=== PATIENT | female | born 1950 | race Caucasian/White ===

== ENCOUNTER 2018-03-18 11:09 | Inpatient (IN) | payer MEDICARE ==
[~2018-03-18] VITALS: Ht 160 cm; Wt 78.9 kg
[2018-03-18 11:55] LABS: BASOPHILS % 0.7 % (0.0-2.0); EOSINOPHILS % 1.4 % (0.0-5.0); HEMATOCRIT. 38.6 % (36.0-48.0); HEMOGLOBIN. 12.6 g/dL (12.0-16.0); LYMPHOCYTES % 33.9 % (20.0-50.0); MEAN CORPUSCULAR HEMOGLOBIN 27.2 pg (28.0-32.0); MEAN CORPUSCULAR VOLUME 83.5 fL (81.0-99.0); MEAN PLATELET VOLUME 10.6 fl (7.4-10.4); MONOCYTES % 7.8 % (2.0-8.0); NEUTROPHILS % 56.2 % (40.0-76.0); PLATELET 198 x1000/uL (130-400); RED BLOOD CELL COUNT 4.62 mill/uL (4.2-5.4); RED CELL DISTRIBUTION WIDTH 13.8 % (11.6-14.6)
[2018-03-18 12:02] LABS: CHLORIDE 106 mEq/L (98-107); PROTHROMBIN TIME 9.9 sec (9.1-11.1)
[2018-03-18 12:05] LABS: ETHANOL BLOOD < 10 mg/dL
[2018-03-18 12:08] LABS: LDL CHOLESTEROL 89 mg/dL (5-100)
[2018-03-18 12:09] LABS: CREATINE KINASE 176 IU/L (26-192)
[2018-03-18] MEDS ORDERED: ASPIRIN 325MG EC TABLET PO ONE (14:00)
[2018-03-18] MEDS ORDERED: DILTIAZEM HCL 30MG TABLET PO ONE (14:15)
[2018-03-18] MEDS ORDERED: ACETAMINOPHEN 325MG TABLET PO ONE (14:15)
[2018-03-18 14:41] LABS: CLARITY URINE CLEAR (CLEAR); COLOR URINE YELLOW (YELLOW); KETONES URINE NEGATIVE (NEGATIVE); LEUKOCYTE ESTERASE URINE NEGATIVE (NEGATIVE); NITRITE URINE NEGATIVE (NEGATIVE); OCCULT BLOOD URINE NEGATIVE (NEGATIVE); PH URINE 5.5 (4.5-8.0); PROTEIN URINE 1+ (NEGATIVE); SPECIFIC GRAVITY URINE 1.021 (1.005-1.030); UROBILINOGEN URINE 0.2 E.U./dL (0.2-1.0)
[2018-03-18 14:58] LABS: *AMPHETAMINES SCREEN URINE NEGATIVE (NEGATIVE); *BARBITURATES SCREEN URINE NEGATIVE (NEGATIVE); *BENZODIAZEPINES SCREEN URINE NEGATIVE (NEGATIVE); *COCAINE SCREEN URINE NEGATIVE (NEGATIVE); METHADONE URINE SCREEN NEGATIVE (NEGATIVE); OPIATES URINE SCREEN NEGATIVE (NEGATIVE)
[2018-03-18 14:59] LABS: CANNABINOID URINE SCREEN NEGATIVE (NEGATIVE); PHENCYCLIDINE URINE SCREEN NEGATIVE (NEGATIVE)
[2018-03-18] MEDS ORDERED: ACETAMINOPHEN 325MG TABLET PO PRN (16:45)
[2018-03-18] MEDS ORDERED: ACETAMINOPHEN 650MG SUPP PR PRN (16:45)
[2018-03-18] MEDS ORDERED: IPRATROPIUM/ALBUTEROL 0.5-3(2.5)MG/3ML NEB INH PRN (16:45)
[2018-03-18] MEDS ORDERED: HYDROCODONE/ACETAMINOPHEN 5/325MG TABLET PO PRN (16:45)
[2018-03-18] MEDS ORDERED: DIPHENHYDRAMINE 50MG/ML VIAL IV PRN (16:45)
[2018-03-18] MEDS ORDERED: MAGNESIUM/ALUMINUM HYDROXIDE/SIMETHICONE 30ML UDC PO PRN (16:45)
[2018-03-18] MEDS ORDERED: GUAIFENESIN 200MG/10ML SUGAR FREE UDC PO PRN (16:45)
[2018-03-18] MEDS ORDERED: ONDANSETRON HCL 4MG/2ML INJ IV PRN (16:45)
[2018-03-18] MEDS ORDERED: DOCUSATE SODIUM 100MG CAPSULE PO PRN (16:45)
[2018-03-18] MEDS ORDERED: ACETAMINOPHEN 650MG/20.3ML UDC GT PRN (16:45)
[2018-03-18] MEDS ORDERED: DILTIAZEM HCL 5MG/ML 5ML VIAL IV NR (17:00)
[2018-03-18] MEDS: INSULIN LISPRO 100 UNITS/ML SUBCUT NR ×2 (19:58→21:33)
[2018-03-18 21:00] VITALS: BP 142/101
[2018-03-18] MEDS: INSULIN LISPRO 100 UNITS/ML SUBCUT SCH (21:00)
[2018-03-18] MEDS ORDERED: NA PHOS,M-B/NA PHOS,DI-BA ENEMA 118ML PR PRN (21:00)
[2018-03-18] MEDS ORDERED: DEXTROSE 50% WATER 50ML SYRINGE IV PRN (21:00)
[2018-03-18] MEDS ORDERED: ENOXAPARIN 80MG/0.8ML SYR SUBCUT NR (21:01)
[2018-03-18] MEDS: BLOOD SUGAR DIAGNOSTIC STRIP TEST SCH (21:33)
[2018-03-18] MEDS: DIGOXIN 500MCG/2ML AMP IV SCH (21:52)
[2018-03-18] MEDS: SODIUM CHLORIDE 0.9% INJ 3ML FLUSH IVF SCH (22:02)
[2018-03-19] VITALS: BP 143/53
[2018-03-19 00:50] LABS: CREATINE KINASE 159 IU/L (26-192)
[2018-03-19 00:51] LABS: CREATINE KINASE MB FRACTION 1.5 ng/mL (0.5-3.6)
[2018-03-19] MEDS ORDERED: ATOR10TA69 MT (01:06)
[2018-03-19] MEDS ORDERED: HYDR12.529 MT (01:06)
[2018-03-19] MEDS ORDERED: LISI10TA5 MT (01:06)
[2018-03-19 04:00] VITALS: BP 145/67
[2018-03-19] MEDS: SODIUM CHLORIDE 0.9% INJ 3ML FLUSH IVF SCH ×3 (05:43→21:03)
[2018-03-19] MEDS: BLOOD SUGAR DIAGNOSTIC STRIP TEST SCH ×4 (05:43→21:04)
[2018-03-19] MEDS: INSULIN LISPRO 100 UNITS/ML SUBCUT SCH ×4 (05:46→21:21)
[2018-03-19 07:24] LABS: BASOPHILS % 0.3 % (0.0-2.0); EOSINOPHILS % 2.6 % (0.0-5.0); HEMATOCRIT. 37.4 % (36.0-48.0); HEMOGLOBIN. 12.1 g/dL (12.0-16.0); LYMPHOCYTES % 33.3 % (20.0-50.0); MEAN CORPUSCULAR VOLUME 83.2 fL (81.0-99.0); MEAN PLATELET VOLUME 10.6 fl (7.4-10.4); MONOCYTES % 8.2 % (2.0-8.0); NEUTROPHILS % 55.6 % (40.0-76.0); PLATELET 186 x1000/uL (130-400); RED BLOOD CELL COUNT 4.49 mill/uL (4.2-5.4); RED CELL DISTRIBUTION WIDTH 14.1 % (11.6-14.6)
[2018-03-19 08:00] VITALS: BP 140/60
[2018-03-19] MEDS: ASPIRIN 81MG EC TABLET PO SCH (08:11)
[2018-03-19 11:14] LABS: CLARITY URINE CLEAR (CLEAR); COLOR URINE YELLOW (YELLOW); KETONES URINE NEGATIVE (NEGATIVE); LEUKOCYTE ESTERASE URINE NEGATIVE (NEGATIVE); NITRITE URINE NEGATIVE (NEGATIVE); OCCULT BLOOD URINE NEGATIVE (NEGATIVE); PROTEIN URINE TRACE (NEGATIVE); SPECIFIC GRAVITY URINE 1.018 (1.005-1.030); UROBILINOGEN URINE 0.2 E.U./dL (0.2-1.0)
[2018-03-19 11:23] LABS: CHLORIDE 107 mEq/L (98-107)
[2018-03-19 11:35] LABS: CREATINE KINASE 137 IU/L (26-192); CREATINE KINASE MB FRACTION 1.5 ng/mL (0.5-3.6)
[2018-03-19 11:37] LABS: T4 FREE 1.12 ng/dL (0.76-1.46)
[2018-03-19 11:47] LABS: HDL CHOLESTEROL 39 mg/dL (40-59)
[2018-03-19 11:49] LABS: FOLIC ACID (FOLATE) SERUM 19.5 ng/mL (>5.38); LDL CHOLESTEROL 87 mg/dL (5-100)
[2018-03-19 12:00] VITALS: BP_SYST 138; BP_SYST 140; BP_DIAS 60; BP_DIAS 69
[2018-03-19] MEDS: ENOXAPARIN 40MG/0.4ML SYR SUBCUT SCH (12:09)
[2018-03-19] MEDS: CLOPIDOGREL 75MG TABLET PO SCH (12:09)
[2018-03-19 16:00] VITALS: BP_SYST 136; BP_DIAS 67; BP_DIAS 69
[2018-03-19] MEDS: DIGOXIN 500MCG/2ML AMP IV SCH (18:09)
[2018-03-19 20:00] VITALS: BP 180/73
[2018-03-19] MEDS: ATORVASTATIN CALCIUM 10MG TABLET PO SCH (21:03)
[2018-03-20] VITALS: BP 147/75
[2018-03-20 04:00] VITALS: BP 105/66
[2018-03-20] MEDS: SODIUM CHLORIDE 0.9% INJ 3ML FLUSH IVF SCH ×3 (06:16→20:55)
[2018-03-20] MEDS: INSULIN LISPRO 100 UNITS/ML SUBCUT SCH ×4 (06:28→21:17)
[2018-03-20] MEDS: BLOOD SUGAR DIAGNOSTIC STRIP TEST SCH ×4 (06:28→20:55)
[2018-03-20 08:00] VITALS: BP 171/74
[2018-03-20] MEDS: CLOPIDOGREL 75MG TABLET PO SCH (08:02)
[2018-03-20] MEDS: ASPIRIN 81MG EC TABLET PO SCH (08:02)
[2018-03-20] MEDS: ENOXAPARIN 40MG/0.4ML SYR SUBCUT SCH (08:03)
[2018-03-20 12:00] VITALS: BP 147/62
[2018-03-20 16:00] VITALS: BP 168/70
[2018-03-20] MEDS: DIGOXIN 500MCG/2ML AMP IV SCH (16:52)
[2018-03-20 20:00] VITALS: BP 191/76
[2018-03-20] MEDS: ATORVASTATIN CALCIUM 10MG TABLET PO SCH (20:54)
[2018-03-21] VITALS: BP 174/61
[2018-03-21 04:00] VITALS: BP 163/85
[2018-03-21 08:00] VITALS: BP 161/82
[2018-03-21] MEDS: CLOPIDOGREL 75MG TABLET PO SCH (08:59)
[2018-03-21] MEDS: ASPIRIN 81MG EC TABLET PO SCH (08:59)
[2018-03-21] MEDS: ENOXAPARIN 40MG/0.4ML SYR SUBCUT SCH (09:00)
[2018-03-21 12:00] VITALS: BP 135/82
[2018-03-21] MEDS: BLOOD SUGAR DIAGNOSTIC STRIP TEST SCH (12:02)
[2018-03-21] MEDS: INSULIN LISPRO 100 UNITS/ML SUBCUT SCH (12:47)
[2018-03-21] MEDS ORDERED: DIGO125T82 MT (13:01)
[2018-03-21] MEDS ORDERED: ATOR10TA PO (13:01)
[2018-03-21] MEDS ORDERED: ASPI-1158 PO (13:01)
[2018-03-21] MEDS ORDERED: CLOP75TA16 PO (13:01)
[2018-03-21] MEDS: SODIUM CHLORIDE 0.9% INJ 3ML FLUSH IVF SCH (14:00)
[2018-03-21 14:18] VITALS: BP 135/82
[2018-03-21 16:00] VITALS: BP 167/66
[2018-03-21 16:13] LABS: BASOPHILS % 0.5 % (0.0-2.0); EOSINOPHILS % 1.2 % (0.0-5.0); HEMATOCRIT. 38.6 % (36.0-48.0); HEMOGLOBIN. 12.6 g/dL (12.0-16.0); LYMPHOCYTES % 28.3 % (20.0-50.0); MEAN CORPUSCULAR HEMOGLOBIN 27.1 pg (28.0-32.0); MEAN CORPUSCULAR VOLUME 83.1 fL (81.0-99.0); MEAN PLATELET VOLUME 10.9 fl (7.4-10.4); MONOCYTES % 8.8 % (2.0-8.0); NEUTROPHILS % 61.2 % (40.0-76.0); PLATELET 210 x1000/uL (130-400); RED BLOOD CELL COUNT 4.64 mill/uL (4.2-5.4); RED CELL DISTRIBUTION WIDTH 13.8 % (11.6-14.6)
[2018-03-21 16:18] LABS: CHLORIDE 101 mEq/L (98-107)
== END 2018-03-21 17:05 | disposition home health service (06) | DRG 65 ==
LOC: ER 11:09 → 8WST 14:00 → ENRESERV 19:13 → 8WST 03-19 00:04
PROVIDERS: ADMIT Family Medicine; ATTEND Family Medicine
DX: I63.9 Cerebral infarction, unspecified (principal); G81.91 Hemiplegia, unspecified affecting right dominant side; I10 Essential (primary) hypertension; E11.9 Type 2 diabetes mellitus without complications; R90.82 White matter disease, unspecified; G31.9 Degenerative disease of nervous system, unspecified; R47.1 Dysarthria and anarthria; R29.810 Facial weakness; Z86.73 Personal history of transient ischemic attack (TIA), and cerebral infarction without residual deficits; Z88.0 Allergy status to penicillin; Z88.8 Allergy status to other drugs, medicaments and biological substances
CPT/HCPCS: 36415; 70544; 70553; 71045; 80061; 80305; 82550; 82553; 82607; 82746; 82962; 83036; 83721; 83880; 84439; 84443; 84481; 84484; 85379; 92523; 92610; 93005; 93306; 93880; 93970; 96372; 96374; 97112; 97116; 97162; 97166; 99291; C1893; G0482; J1160; J1650; J1815; J3490

== ENCOUNTER 2018-08-21 18:25 | Inpatient (IN) | payer MEDICARE ==
[~2018-08-21] VITALS: Ht 175.3 cm; Wt 84.6 kg
[~2018-08-21 18:25] MED LIST: ASPI-1158 PO; ATOR10TA PO; ATOR10TA69 MT; CLOP75TA16 PO; DIGO125T82 MT; HYDR12.529 MT; LISI10TA5 MT
[2018-08-21] MEDS ORDERED: SODIUM CHLORIDE 0.9% 1,000 ML IV ONE ×2 (19:26→21:00)
[2018-08-21 19:50] LABS: BASOPHILS % 0.9 % (0.0-2.0); EOSINOPHILS % 0.5 % (0.0-5.0); HEMATOCRIT. 40.9 % (36.0-48.0); HEMOGLOBIN. 13.5 g/dL (12.0-16.0); LYMPHOCYTES % 29.3 % (20.0-50.0); MEAN CORPUSCULAR HEMOGLOBIN 27.3 pg (28.0-32.0); MEAN CORPUSCULAR VOLUME 83.1 fL (81.0-99.0); MEAN PLATELET VOLUME 10.5 fl (7.4-10.4); MONOCYTES % 8.1 % (2.0-8.0); NEUTROPHILS % 61.2 % (40.0-76.0); PLATELET 204 x1000/uL (130-400); RED BLOOD CELL COUNT 4.92 mill/uL (4.2-5.4); RED CELL DISTRIBUTION WIDTH 14.7 % (11.6-14.6)
[2018-08-21 19:52] LABS: CHLORIDE 108 mEq/L (98-107)
[2018-08-21] MEDS ORDERED: IOHEXOL-350 100 ML BOTTLE ONE (21:39)
[2018-08-21] MEDS ORDERED: ASPIRIN 325MG TABLET PO ONE (23:15)
[2018-08-21] MEDS ORDERED: FUROSEMIDE 40MG/4ML VIAL IVP ONE (23:15)
[2018-08-22] VITALS (31 sets, daily range): BP systolic 51–184; BP diastolic 22–99
[2018-08-22] MEDS: METOPROLOL TARTRATE 5MG/5ML VIAL IV SCH ×3 (00:16→01:56)
[2018-08-22 00:30] LABS: CLARITY URINE CLEAR (CLEAR); COLOR URINE YELLOW (YELLOW); KETONES URINE NEGATIVE (NEGATIVE); LEUKOCYTE ESTERASE URINE NEGATIVE (NEGATIVE); NITRITE URINE NEGATIVE (NEGATIVE); OCCULT BLOOD URINE NEGATIVE (NEGATIVE); PROTEIN URINE TRACE (NEGATIVE); SPECIFIC GRAVITY URINE 1.024 (1.005-1.030); UROBILINOGEN URINE 0.2 E.U./dL (0.2-1.0)
[2018-08-22] MEDS ORDERED: ENOXAPARIN 80MG/0.8ML SYR SUBCUT ONE (00:30)
[2018-08-22 00:57] LABS: PHENCYCLIDINE URINE SCREEN NEGATIVE (NEGATIVE)
[2018-08-22 00:58] LABS: *AMPHETAMINES SCREEN URINE NEGATIVE (NEGATIVE); *BARBITURATES SCREEN URINE NEGATIVE (NEGATIVE); *BENZODIAZEPINES SCREEN URINE NEGATIVE (NEGATIVE); *COCAINE SCREEN URINE NEGATIVE (NEGATIVE); CANNABINOID URINE SCREEN NEGATIVE (NEGATIVE); METHADONE URINE SCREEN NEGATIVE (NEGATIVE)
[2018-08-22 00:59] LABS: OPIATES URINE SCREEN NEGATIVE (NEGATIVE)
[2018-08-22] MEDS ORDERED: LISI40TA4 PO (04:29)
[2018-08-22] MEDS ORDERED: METOPROLOL TARTRATE 5MG/5ML VIAL IV NR (05:15)
[2018-08-22] MEDS ORDERED: GUAIFENESIN 200MG/10ML SUGAR FREE UDC PO PRN (06:30)
[2018-08-22] MEDS ORDERED: IPRATROPIUM/ALBUTEROL 0.5-3(2.5)MG/3ML NEB INH PRN (06:30)
[2018-08-22] MEDS ORDERED: ONDANSETRON HCL 4MG/2ML INJ IV PRN (06:30)
[2018-08-22] MEDS ORDERED: NA PHOS,M-B/NA PHOS,DI-BA ENEMA 118ML PR PRN (06:30)
[2018-08-22] MEDS ORDERED: DEXTROSE 50% WATER 50ML SYRINGE IV PRN (06:30)
[2018-08-22] MEDS ORDERED: HYDROCODONE/ACETAMINOPHEN 10/325MG TABLET PO PRN (06:30)
[2018-08-22] MEDS ORDERED: MAGNESIUM/ALUMINUM HYDROXIDE/SIMETHICONE 30ML UDC PO PRN (06:30)
[2018-08-22] MEDS ORDERED: DOCUSATE SODIUM 100MG CAPSULE PO PRN (06:30)
[2018-08-22] MEDS: BLOOD SUGAR DIAGNOSTIC STRIP TEST SCH ×3 (06:50→17:57)
[2018-08-22] MEDS: INSULIN LISPRO 100 UNITS/ML SUBCUT SCH ×3 (07:20→18:07)
[2018-08-22] MEDS: ENOXAPARIN 80MG/0.8ML SYR SUBCUT SCH ×2 (09:30→21:49)
[2018-08-22] MEDS: ASPIRIN 81MG EC TABLET PO SCH (09:30)
[2018-08-22] MEDS ORDERED: DILTIAZEM HCL 125 MG in DEXT 5% WATER 100 ML IV SCH (10:00)
[2018-08-22] MEDS ORDERED: POTASSIUM CHLORIDE INJ 40 MEQ in DEXT 5% WATER 250 ML IV SCH (10:00)
[2018-08-22 10:44] LABS: CHLORIDE 107 mEq/L (98-107); HEMATOCRIT. 40.8 % (36.0-48.0); HEMOGLOBIN. 12.7 g/dL (12.0-16.0); MEAN CORPUSCULAR HEMOGLOBIN 26.3 pg (28.0-32.0); MEAN CORPUSCULAR VOLUME 84.5 fL (81.0-99.0); RED BLOOD CELL COUNT 4.83 mill/uL (4.2-5.4); RED CELL DISTRIBUTION WIDTH 15.2 % (11.6-14.6)
[2018-08-22 11:27] LABS: PLATELET 178 x1000/uL (130-400)
[2018-08-22 11:30] LABS: PLATELET ESTIMATE NORMAL
[2018-08-22 13:05] LABS: BG BASE EXCESS -2.8 mmol/L (-2.0-2.0); BG CARBOXYHEMOGLOBIN 0.9 % (0.5-1.5); BG DEOXYHEMOGLOBIN 7.9 % (0.0-5.0); BG FRACTION INSPIRED OXYGEN 30; BG HCO3 ACT 21.2 mmol/L (22.0-26.0); BG METHEMOGLOBIN 0.2 % (0.0-1.5); BG PCO2 34.7 mmHg (35.0-45.0); BG PH 7.403 (7.350-7.450); BG PO2 66.3 mmHg (75.0-100.0); BG SAMPLE SITE RIGHT BRACHIAL; BG TOTAL HEMOGLOBIN 14.4 g/dL (12.0-18.0); BG VENT MODE NASAL CANNULA
[2018-08-22 13:20] LABS: HEPATITIS B SURFACE ANTIGEN NEGATIVE
[2018-08-22 13:50] LABS: HEPATITIS A AB IGM NEGATIVE (NEGATIVE)
[2018-08-22] MEDS: SODIUM CHLORIDE 0.9% INJ 3ML FLUSH IVF SCH ×2 (14:17→22:04)
[2018-08-22] MEDS: LORAZEPAM 2MG/ML CPJ IV PRN (14:42)
[2018-08-22] MEDS: CLONIDINE 0.1MG TABLET PO PRN (14:45)
[2018-08-22] MEDS: HYDRALAZINE 20MG/ML VIAL IV PRN (15:19)
[2018-08-22] MEDS: IPRATROPIUM BROMIDE (0.02%) 0.5MG/2.5ML NEB HHN SCH (15:45)
[2018-08-22] MEDS ORDERED: FUROSEMIDE 40MG/4ML VIAL IVP SCH (16:00)
[2018-08-22 16:07] LABS: BG BASE EXCESS -7.9 mmol/L (-2.0-2.0); BG CARBOXYHEMOGLOBIN 0.9 % (0.5-1.5); BG DEOXYHEMOGLOBIN 13.8 % (0.0-5.0); BG HCO3 ACT 23.4 mmol/L (22.0-26.0); BG METHEMOGLOBIN 0.2 % (0.0-1.5); BG OXYHEMOGLOBIN 85.1 % (94.0-97.0); BG PCO2 75.6 mmHg (35.0-45.0); BG PH 7.108 (7.350-7.450); BG PO2 72.1 mmHg (75.0-100.0); BG SAMPLE SITE RIGHT BRACHIAL; BG TOTAL HEMOGLOBIN 15.2 g/dL (12.0-18.0)
[2018-08-22] MEDS ORDERED: NITROGLYCERIN 50MG PREMIX 250 ML IV PRN (16:15)
[2018-08-22] MEDS ORDERED: FUROSEMIDE 40MG/4ML VIAL IVP NR (16:45)
[2018-08-22 17:20] LABS: BG BASE EXCESS -1.9 mmol/L (-2.0-2.0); BG CARBOXYHEMOGLOBIN 1.3 % (0.5-1.5); BG DEOXYHEMOGLOBIN 0.2 % (0.0-5.0); BG FRACTION INSPIRED OXYGEN 100; BG HCO3 ACT 21.5 mmol/L (22.0-26.0); BG METHEMOGLOBIN 0.3 % (0.0-1.5); BG OXYGEN SATURATION 99.8 % (92.0-98.5); BG OXYHEMOGLOBIN 98.2 % (94.0-97.0); BG PCO2 32.8 mmHg (35.0-45.0); BG PH 7.434 (7.350-7.450); BG PO2 279.8 mmHg (75.0-100.0); BG SAMPLE SITE RIGHT BRACHIAL; BG TIDAL VOLUME(mL) 550 mL; BG TOTAL HEMOGLOBIN 14.6 g/dL (12.0-18.0); BG VENT MODE VENT - A/C; BG VENT RATE 18 set
[2018-08-22] MEDS: HYDRALAZINE HCL 25MG TABLET PO SCH ×2 (18:07→21:50)
[2018-08-22] MEDS: PROPOFOL 10MG/ML 100ML 100 ML IV PRN (19:39)
[2018-08-22] MEDS: METOPROLOL TARTRATE 25MG TABLET PO SCH (20:51)
[2018-08-22] MEDS ORDERED: ENOXAPARIN 40MG/0.4ML SYR SUBCUT SCH (21:00)
[2018-08-23] VITALS (85 sets, daily range): BP systolic 76–138; BP diastolic 48–95
[2018-08-23] MEDS: BLOOD SUGAR DIAGNOSTIC STRIP TEST SCH ×4 (00:02→18:03)
[2018-08-23] MEDS: INSULIN LISPRO 100 UNITS/ML SUBCUT SCH ×4 (00:06→18:00)
[2018-08-23] MEDS: IPRATROPIUM BROMIDE (0.02%) 0.5MG/2.5ML NEB HHN SCH ×6 (00:30→23:54)
[2018-08-23] MEDS: HYDRALAZINE HCL 25MG TABLET PO SCH ×3 (06:00→21:29)
[2018-08-23] MEDS: SODIUM CHLORIDE 0.9% INJ 3ML FLUSH IVF SCH ×3 (06:00→21:29)
[2018-08-23 06:07] LABS: INR 1.2; PROTHROMBIN TIME 12.7 sec (9.6-11.0)
[2018-08-23 06:25] LABS: T4 FREE 1.31 ng/dL (0.76-1.46)
[2018-08-23] MEDS: PROPOFOL 10MG/ML 100ML 100 ML IV PRN ×2 (06:42→21:40)
[2018-08-23 06:56] LABS: CREATINE KINASE MB FRACTION 2.8 ng/mL (0.5-3.6)
[2018-08-23] MEDS: OMEPRAZOLE 20MG CAPSULE EXTENDED RELEASE PO SCH (07:55)
[2018-08-23] MEDS: ENOXAPARIN 80MG/0.8ML SYR SUBCUT SCH ×2 (08:14→21:29)
[2018-08-23] MEDS: ASPIRIN 81MG EC TABLET PO SCH (08:14)
[2018-08-23 08:25] LABS: BG BASE EXCESS 2.2 mmol/L (-2.0-2.0); BG CARBOXYHEMOGLOBIN 0.4 % (0.5-1.5); BG DEOXYHEMOGLOBIN 3.2 % (0.0-5.0); BG FRACTION INSPIRED OXYGEN 40; BG HCO3 ACT 23.1 mmol/L (22.0-26.0); BG METHEMOGLOBIN 0.2 % (0.0-1.5); BG OXYGEN SATURATION 96.8 % (92.0-98.5); BG OXYHEMOGLOBIN 96.2 % (94.0-97.0); BG PCO2 26.2 mmHg (35.0-45.0); BG PH 7.564 (7.350-7.450); BG PO2 81.9 mmHg (75.0-100.0); BG SAMPLE SITE RIGHT RADIAL; BG TIDAL VOLUME(mL) 550 mL; BG TOTAL HEMOGLOBIN 13.1 g/dL (12.0-18.0); BG VENT MODE VENT - A/C; BG VENT RATE 16 set
[2018-08-23] MEDS: METOPROLOL TARTRATE 25MG TABLET PO SCH (08:54)
[2018-08-23] MEDS: FUROSEMIDE 40MG/4ML VIAL IVP SCH ×2 (10:09→18:00)
[2018-08-23] MEDS: ESMOLOL 2500MG PREMIX 250 ML IV PRN ×3 (10:30→19:10)
[2018-08-23] MEDS ORDERED: PROPOFOL 10MG/ML 100ML 100 ML IV PRN (11:15)
[2018-08-23] MEDS ORDERED: LIDOCAINE HCL 1% 20ML VIAL (Pyxis) INJ ONE (13:02)
[2018-08-23] MEDS ORDERED: NOREPINEPHRINE 8 MG in DEXT 5% WATER 242 ML IV PRN (20:32)
[2018-08-23 21:24] LABS: BASOPHILS % 0.6 % (0.0-2.0); EOSINOPHILS % 0.2 % (0.0-5.0); HEMATOCRIT. 38.2 % (36.0-48.0); HEMOGLOBIN. 12.4 g/dL (12.0-16.0); LYMPHOCYTES % 16.4 % (20.0-50.0); MEAN CORPUSCULAR HEMOGLOBIN 27.2 pg (28.0-32.0); MEAN CORPUSCULAR VOLUME 83.5 fL (81.0-99.0); MEAN PLATELET VOLUME 10.7 fl (7.4-10.4); MONOCYTES % 13.3 % (2.0-8.0); NEUTROPHILS % 69.5 % (40.0-76.0); PLATELET 179 x1000/uL (130-400); RED BLOOD CELL COUNT 4.57 mill/uL (4.2-5.4)
[2018-08-23 22:02] LABS: BG BASE EXCESS -0.3 mmol/L (-2.0-2.0); BG CARBOXYHEMOGLOBIN 0.9 % (0.5-1.5); BG FRACTION INSPIRED OXYGEN 40; BG HCO3 ACT 22.5 mmol/L (22.0-26.0); BG METHEMOGLOBIN 0.1 % (0.0-1.5); BG PCO2 31.5 mmHg (35.0-45.0); BG PH 7.472 (7.350-7.450); BG PIP 39 cmH2O; BG PO2 83.4 mmHg (75.0-100.0); BG SAMPLE SITE RIGHT RADIAL; BG TIDAL VOLUME(mL) 500 mL; BG TOTAL HEMOGLOBIN 12.9 g/dL (12.0-18.0); BG VENT MODE VENT - A/C; BG VENT RATE 14 set
[2018-08-23] MEDS: CLONIDINE 0.1MG TABLET PO PRN (22:59)
[2018-08-23] MEDS ORDERED: IBUTILIDE FUMARATE 1 MG in SODIUM CHLORIDE 0.9% 50 ML IV SCH (23:00)
[2018-08-24] VITALS (96 sets, daily range): BP systolic 85–119; BP diastolic 49–75
[2018-08-24] MEDS: IPRATROPIUM BROMIDE (0.02%) 0.5MG/2.5ML NEB HHN SCH ×5 (04:02→20:26)
[2018-08-24 05:41] LABS: BASOPHILS % 0.5 % (0.0-2.0); EOSINOPHILS % 0.3 % (0.0-5.0); HEMATOCRIT. 36.8 % (36.0-48.0); HEMOGLOBIN. 11.9 g/dL (12.0-16.0); LYMPHOCYTES % 21.1 % (20.0-50.0); MEAN CORPUSCULAR HEMOGLOBIN 26.8 pg (28.0-32.0); MEAN CORPUSCULAR VOLUME 83.2 fL (81.0-99.0); MEAN PLATELET VOLUME 11.4 fl (7.4-10.4); NEUTROPHILS % 69.1 % (40.0-76.0); PLATELET 174 x1000/uL (130-400); RED BLOOD CELL COUNT 4.43 mill/uL (4.2-5.4); RED CELL DISTRIBUTION WIDTH 15.2 % (11.6-14.6)
[2018-08-24] MEDS: INSULIN LISPRO 100 UNITS/ML SUBCUT SCH ×5 (06:00→23:49)
[2018-08-24] MEDS: HYDRALAZINE HCL 25MG TABLET PO SCH ×3 (06:00→22:00)
[2018-08-24] MEDS: BLOOD SUGAR DIAGNOSTIC STRIP TEST SCH ×5 (06:06→23:39)
[2018-08-24] MEDS: SODIUM CHLORIDE 0.9% INJ 3ML FLUSH IVF SCH ×3 (06:06→22:05)
[2018-08-24] MEDS: SOTALOL HCL 80MG TABLET NG NR ×2 (06:09→06:14)
[2018-08-24] MEDS: OMEPRAZOLE 20MG CAPSULE EXTENDED RELEASE PO SCH (06:46)
[2018-08-24] MEDS: FUROSEMIDE 40MG/4ML VIAL IVP SCH (06:46)
[2018-08-24] MEDS: ASPIRIN 81MG EC TABLET PO SCH (08:31)
[2018-08-24] MEDS: ENOXAPARIN 80MG/0.8ML SYR SUBCUT SCH ×2 (08:32→21:07)
[2018-08-24] MEDS: SOTALOL HCL 80MG TABLET PO SCH ×3 (08:35→22:05)
[2018-08-24] MEDS: ESMOLOL 2500MG PREMIX 250 ML IV PRN ×2 (08:36→15:23)
[2018-08-24] MEDS: PROPOFOL 10MG/ML 100ML 100 ML IV PRN (08:44)
[2018-08-24 08:57] LABS: BG BASE EXCESS -0.4 mmol/L (-2.0-2.0); BG CARBOXYHEMOGLOBIN 0.5 % (0.5-1.5); BG DEOXYHEMOGLOBIN 3.1 % (0.0-5.0); BG FRACTION INSPIRED OXYGEN 40; BG HCO3 ACT 23.5 mmol/L (22.0-26.0); BG METHEMOGLOBIN 0.2 % (0.0-1.5); BG OXYGEN SATURATION 96.9 % (92.0-98.5); BG OXYHEMOGLOBIN 96.2 % (94.0-97.0); BG PCO2 36.1 mmHg (35.0-45.0); BG PH 7.432 (7.350-7.450); BG SAMPLE SITE RIGHT RADIAL; BG TIDAL VOLUME(mL) 500 mL; BG TOTAL HEMOGLOBIN 12.5 g/dL (12.0-18.0); BG VENT MODE VENT - A/C; BG VENT RATE 14 set
[2018-08-24] MEDS ORDERED: SODIUM CHLORIDE 0.9% 500 ML IV ONE (11:30)
[2018-08-24] MEDS ORDERED: PROPOFOL 10MG/ML 100ML 100 ML IV PRN (11:30)
[2018-08-25] VITALS (93 sets, daily range): BP systolic 97–158; BP diastolic 28–80
[2018-08-25] MEDS: IPRATROPIUM BROMIDE (0.02%) 0.5MG/2.5ML NEB HHN SCH ×6 (00:30→20:17)
[2018-08-25] MEDS: ACETAMINOPHEN 325MG TABLET PO PRN (04:19)
[2018-08-25] MEDS: SODIUM CHLORIDE 0.9% INJ 3ML FLUSH IVF SCH ×3 (05:39→21:27)
[2018-08-25] MEDS: BLOOD SUGAR DIAGNOSTIC STRIP TEST SCH ×4 (05:50→23:58)
[2018-08-25] MEDS: INSULIN LISPRO 100 UNITS/ML SUBCUT SCH ×3 (05:55→17:38)
[2018-08-25] MEDS: HYDRALAZINE HCL 25MG TABLET PO SCH ×3 (06:05→21:27)
[2018-08-25 07:42] LABS: BG BASE EXCESS -1.4 mmol/L (-2.0-2.0); BG CARBOXYHEMOGLOBIN 0.9 % (0.5-1.5); BG DEOXYHEMOGLOBIN 3.5 % (0.0-5.0); BG HCO3 ACT 22.5 mmol/L (22.0-26.0); BG METHEMOGLOBIN 0.2 % (0.0-1.5); BG OXYGEN SATURATION 96.5 % (92.0-98.5); BG OXYHEMOGLOBIN 95.4 % (94.0-97.0); BG PCO2 35.3 mmHg (35.0-45.0); BG PH 7.423 (7.350-7.450); BG PO2 88.2 mmHg (75.0-100.0); BG SAMPLE SITE RIGHT RADIAL; BG TIDAL VOLUME(mL) 500 mL; BG TOTAL HEMOGLOBIN 12.1 g/dL (12.0-18.0); BG VENT MODE VENT - A/C; BG VENT RATE 14 set
[2018-08-25] MEDS: SOTALOL HCL 80MG TABLET PO SCH (08:31)
[2018-08-25] MEDS: ENOXAPARIN 80MG/0.8ML SYR SUBCUT SCH (08:31)
[2018-08-25] MEDS: ASPIRIN 81MG EC TABLET PO SCH (08:31)
[2018-08-25] MEDS: FAMOTIDINE 20MG TABLET PO SCH (08:31)
[2018-08-25 09:13] LABS: BASOPHILS % 0.6 % (0.0-2.0); EOSINOPHILS % 0.4 % (0.0-5.0); HEMATOCRIT. 36.7 % (36.0-48.0); HEMOGLOBIN. 11.6 g/dL (12.0-16.0); LYMPHOCYTES % 13.3 % (20.0-50.0); MEAN CORPUSCULAR HEMOGLOBIN 26.6 pg (28.0-32.0); MEAN CORPUSCULAR VOLUME 84.3 fL (81.0-99.0); MEAN PLATELET VOLUME 12.2 fl (7.4-10.4); MONOCYTES % 9.7 % (2.0-8.0); PLATELET 177 x1000/uL (130-400); RED BLOOD CELL COUNT 4.35 mill/uL (4.2-5.4); RED CELL DISTRIBUTION WIDTH 15.2 % (11.6-14.6)
[2018-08-25] MEDS: HYDROMORPHONE HCL/PF 2MG/ML CPJ IV PRN (09:20)
[2018-08-25] MEDS: SODIUM CHLORIDE 0.9% 1,000 ML IV SCH (11:48)
[2018-08-25 22:35] LABS: CLARITY URINE TURBID (CLEAR); COLOR URINE ORANGE (YELLOW); KETONES URINE NEGATIVE (NEGATIVE); LEUKOCYTE ESTERASE URINE 1+ (NEGATIVE); NITRITE URINE NEGATIVE (NEGATIVE); OCCULT BLOOD URINE 3+ (NEGATIVE); PROTEIN URINE 2+ (NEGATIVE); SPECIFIC GRAVITY URINE 1.019 (1.005-1.030)
[2018-08-26] VITALS (61 sets, daily range): BP systolic 100–177; BP diastolic 49–89
[2018-08-26] MEDS: INSULIN LISPRO 100 UNITS/ML SUBCUT SCH ×4 (00:10→17:43)
[2018-08-26] MEDS: SODIUM CHLORIDE 0.9% 1,000 ML IV SCH (00:10)
[2018-08-26] MEDS: IPRATROPIUM BROMIDE (0.02%) 0.5MG/2.5ML NEB HHN SCH ×6 (00:15→20:09)
[2018-08-26] MEDS: LORAZEPAM 2MG/ML CPJ IV PRN ×2 (01:26→08:38)
[2018-08-26] MEDS: HYDRALAZINE 20MG/ML VIAL IV PRN ×2 (02:02→09:06)
[2018-08-26] MEDS: ACETAMINOPHEN 325MG TABLET PO PRN ×2 (04:13→13:14)
[2018-08-26] MEDS: CLONIDINE 0.1MG TABLET PO PRN (04:25)
[2018-08-26] MEDS: POTASSIUM CHLORIDE INJ 10 MEQ in SODIUM CHLORIDE 0.45% 1,000 ML IV SCH (04:37)
[2018-08-26 05:09] LABS: EOSINOPHILS % 0.4 % (0.0-5.0); HEMATOCRIT. 37.1 % (36.0-48.0); HEMOGLOBIN. 11.8 g/dL (12.0-16.0); LYMPHOCYTES % 9.9 % (20.0-50.0); MEAN CORPUSCULAR VOLUME 84.8 fL (81.0-99.0); MEAN PLATELET VOLUME 11.9 fl (7.4-10.4); MONOCYTES % 10.6 % (2.0-8.0); NEUTROPHILS % 79.1 % (40.0-76.0); PLATELET 165 x1000/uL (130-400); RED BLOOD CELL COUNT 4.37 mill/uL (4.2-5.4); RED CELL DISTRIBUTION WIDTH 15.2 % (11.6-14.6)
[2018-08-26] MEDS: BLOOD SUGAR DIAGNOSTIC STRIP TEST SCH ×3 (05:45→18:09)
[2018-08-26] MEDS: HYDRALAZINE HCL 25MG TABLET PO SCH ×3 (06:06→22:05)
[2018-08-26] MEDS: SODIUM CHLORIDE 0.9% INJ 3ML FLUSH IVF SCH ×3 (06:07→22:05)
[2018-08-26] MEDS: FAMOTIDINE 20MG TABLET PO SCH (08:37)
[2018-08-26] MEDS: ASPIRIN 81MG EC TABLET PO SCH (08:37)
[2018-08-26] MEDS: SOTALOL HCL 80MG TABLET PO SCH (08:38)
[2018-08-26] MEDS ORDERED: ENOXAPARIN 80MG/0.8ML SYR SUBCUT SCH (09:00)
[2018-08-26] MEDS: HYDROMORPHONE HCL/PF 2MG/ML CPJ IV PRN ×2 (09:34→20:42)
[2018-08-26 09:45] LABS: BG BASE EXCESS 0.7 mmol/L (-2.0-2.0); BG CARBOXYHEMOGLOBIN 1.5 % (0.5-1.5); BG FRACTION INSPIRED OXYGEN 40; BG HCO3 ACT 25.6 mmol/L (22.0-26.0); BG METHEMOGLOBIN 0.3 % (0.0-1.5); BG OXYGEN SATURATION 96.9 % (92.0-98.5); BG OXYHEMOGLOBIN 95.2 % (94.0-97.0); BG PH 7.403 (7.350-7.450); BG PO2 91.9 mmHg (75.0-100.0); BG PRESSURE SUPPORT 12; BG SAMPLE SITE RIGHT RADIAL; BG TIDAL VOLUME(mL) 500 mL; BG TOTAL HEMOGLOBIN 11.1 g/dL (12.0-18.0); BG VENT MODE VENT - SIMV; BG VENT RATE 8 set
[2018-08-26] MEDS ORDERED: LORAZEPAM 2MG/ML CPJ IV PRN (10:00)
[2018-08-26] MEDS ORDERED: LEVOFLOXACIN 500MG PREMIX 100 ML IV SCH (10:00)
[2018-08-26] MEDS: ENOXAPARIN 80MG/0.8ML SYR SUBCUT SCH (20:42)
[2018-08-26] MEDS: DIPHENHYDRAMINE 50MG/ML VIAL IV PRN (22:31)
[2018-08-27] VITALS (62 sets, daily range): BP systolic 132–208; BP diastolic 60–101
[2018-08-27] MEDS: IPRATROPIUM BROMIDE (0.02%) 0.5MG/2.5ML NEB HHN SCH ×6 (00:02→20:46)
[2018-08-27] MEDS: BLOOD SUGAR DIAGNOSTIC STRIP TEST SCH ×4 (00:14→18:51)
[2018-08-27] MEDS: INSULIN LISPRO 100 UNITS/ML SUBCUT SCH ×4 (00:27→18:56)
[2018-08-27] MEDS: HYDRALAZINE 20MG/ML VIAL IV PRN ×3 (02:41→21:50)
[2018-08-27] MEDS: POTASSIUM CHLORIDE INJ 10 MEQ in SODIUM CHLORIDE 0.45% 1,000 ML IV SCH (02:41)
[2018-08-27 05:41] LABS: BASOPHILS % 0.2 % (0.0-2.0); EOSINOPHILS % 0.2 % (0.0-5.0); HEMATOCRIT. 36.3 % (36.0-48.0); HEMOGLOBIN. 11.2 g/dL (12.0-16.0); MEAN CORPUSCULAR HEMOGLOBIN 26.5 pg (28.0-32.0); MEAN CORPUSCULAR VOLUME 85.6 fL (81.0-99.0); MEAN PLATELET VOLUME 11.1 fl (7.4-10.4); MONOCYTES % 10.6 % (2.0-8.0); PLATELET 174 x1000/uL (130-400); RED BLOOD CELL COUNT 4.24 mill/uL (4.2-5.4); RED CELL DISTRIBUTION WIDTH 15.6 % (11.6-14.6)
[2018-08-27] MEDS: SODIUM CHLORIDE 0.9% INJ 3ML FLUSH IVF SCH ×3 (06:04→21:14)
[2018-08-27] MEDS: HYDRALAZINE HCL 25MG TABLET PO SCH (06:08)
[2018-08-27] MEDS: HYDROMORPHONE HCL/PF 2MG/ML CPJ IV PRN ×2 (06:20→19:38)
[2018-08-27] MEDS: ENOXAPARIN 80MG/0.8ML SYR SUBCUT SCH ×2 (08:29→21:14)
[2018-08-27] MEDS: FAMOTIDINE 20MG TABLET PO SCH (08:30)
[2018-08-27] MEDS: ASPIRIN 81MG EC TABLET PO SCH (08:30)
[2018-08-27] MEDS: SOTALOL HCL 80MG TABLET PO SCH (08:30)
[2018-08-27] MEDS: ACETAMINOPHEN 325MG TABLET PO PRN ×2 (08:30→15:31)
[2018-08-27] MEDS ORDERED: FUROSEMIDE 20MG TABLET PO SCH (09:00)
[2018-08-27 09:36] LABS: BG CARBOXYHEMOGLOBIN 0.6 % (0.5-1.5); BG DEOXYHEMOGLOBIN 4.3 % (0.0-5.0); BG FRACTION INSPIRED OXYGEN 40; BG HCO3 ACT 24.6 mmol/L (22.0-26.0); BG METHEMOGLOBIN 0.3 % (0.0-1.5); BG OXYGEN SATURATION 95.7 % (92.0-98.5); BG OXYHEMOGLOBIN 94.8 % (94.0-97.0); BG PCO2 44.3 mmHg (35.0-45.0); BG PH 7.362 (7.350-7.450); BG PO2 79.5 mmHg (75.0-100.0); BG PRESSURE SUPPORT 12; BG SAMPLE SITE RIGHT BRACHIAL; BG TIDAL VOLUME(mL) 500 mL; BG TOTAL HEMOGLOBIN 11.4 g/dL (12.0-18.0); BG VENT MODE VENT - SIMV; BG VENT RATE 8 set
[2018-08-27] MEDS ORDERED: LEVOFLOXACIN 250MG PREMIX 50 ML IV SCH (10:00)
[2018-08-27] MEDS: HYDRALAZINE HCL 100MG TABLET PO SCH ×2 (14:01→21:14)
[2018-08-27] MEDS: CLONIDINE 0.1MG TABLET PO PRN (19:39)
[2018-08-27] MEDS: DIPHENHYDRAMINE 50MG/ML VIAL IV PRN (21:15)
[2018-08-27] MEDS: NITROGLYCERIN 50MG PREMIX 250 ML IV PRN (22:42)
[2018-08-28] VITALS (91 sets, daily range): BP systolic 99–211; BP diastolic 46–116
[2018-08-28] MEDS: BLOOD SUGAR DIAGNOSTIC STRIP TEST SCH ×5 (00:14→23:23)
[2018-08-28] MEDS: INSULIN LISPRO 100 UNITS/ML SUBCUT SCH ×5 (00:15→23:27)
[2018-08-28] MEDS ORDERED: DEXTROSE 50% WATER 50ML SYRINGE IV PRN (00:30)
[2018-08-28] MEDS ORDERED: FUROSEMIDE 20MG TABLET NG SCH (00:30)
[2018-08-28] MEDS: IPRATROPIUM BROMIDE (0.02%) 0.5MG/2.5ML NEB HHN SCH ×6 (00:35→20:22)
[2018-08-28] MEDS: SODIUM CHLORIDE 0.45% 1,000 ML IV SCH ×2 (00:48→20:27)
[2018-08-28] MEDS: CLONIDINE 0.1MG TABLET PO PRN (01:41)
[2018-08-28] MEDS: HYDROMORPHONE HCL/PF 2MG/ML CPJ IV PRN ×2 (03:24→08:51)
[2018-08-28] MEDS: NITROGLYCERIN 50MG PREMIX 250 ML IV PRN (04:01)
[2018-08-28 05:55] LABS: HEMATOCRIT. 31.6 % (36.0-48.0); MEAN CORPUSCULAR VOLUME 85.1 fL (81.0-99.0); MEAN PLATELET VOLUME 11.8 fl (7.4-10.4); PLATELET 183 x1000/uL (130-400); RED BLOOD CELL COUNT 3.71 mill/uL (4.2-5.4); RED CELL DISTRIBUTION WIDTH 15.5 % (11.6-14.6)
[2018-08-28] MEDS: SODIUM CHLORIDE 0.9% INJ 3ML FLUSH IVF SCH ×3 (06:03→21:52)
[2018-08-28] MEDS: HYDRALAZINE HCL 100MG TABLET PO SCH ×3 (06:07→21:39)
[2018-08-28] MEDS: CLONIDINE 0.2MG TABLET PO SCH ×3 (06:08→21:39)
[2018-08-28 08:46] LABS: BG BASE EXCESS 4.4 mmol/L (-2.0-2.0); BG CARBOXYHEMOGLOBIN 1.3 % (0.5-1.5); BG DEOXYHEMOGLOBIN 7.4 % (0.0-5.0); BG FRACTION INSPIRED OXYGEN 40; BG HCO3 ACT 29.9 mmol/L (22.0-26.0); BG METHEMOGLOBIN 0.1 % (0.0-1.5); BG OXYGEN SATURATION 92.5 % (92.0-98.5); BG OXYHEMOGLOBIN 91.2 % (94.0-97.0); BG PCO2 49.6 mmHg (35.0-45.0); BG PH 7.398 (7.350-7.450); BG PO2 60.5 mmHg (75.0-100.0); BG PRESSURE SUPPORT 12; BG SAMPLE SITE RIGHT BRACHIAL; BG TIDAL VOLUME(mL) 500 mL; BG TOTAL HEMOGLOBIN 8.7 g/dL (12.0-18.0); BG VENT MODE VENT - SIMV; BG VENT RATE 8 set
[2018-08-28] MEDS: FUROSEMIDE 20MG TABLET PO SCH ×2 (08:48→20:20)
[2018-08-28] MEDS: ASPIRIN 81MG EC TABLET PO SCH (08:48)
[2018-08-28] MEDS: FAMOTIDINE 20MG TABLET PO SCH ×2 (08:49→20:20)
[2018-08-28] MEDS: ENOXAPARIN 80MG/0.8ML SYR SUBCUT SCH ×2 (08:50→20:21)
[2018-08-28] MEDS ORDERED: AMLODIPINE 10MG TABLET PO SCH (09:00)
[2018-08-28] MEDS: SOTALOL HCL 120MG TABLET PO SCH ×2 (10:14→20:20)
[2018-08-28] MEDS: LEVOFLOXACIN 500MG PREMIX 100 ML IV SCH (10:14)
[2018-08-28] MEDS ORDERED: BISACODYL 10MG SUPP PR PRN (10:45)
[2018-08-28] MEDS ORDERED: LACTULOSE 20G/30ML UDC PO PRN (10:45)
[2018-08-28] MEDS: DOCUSATE SODIUM SUGAR FREE 100MG/10ML UDC NG SCH (12:06)
[2018-08-28] MEDS: LOSARTAN POTASSIUM 50 MG TABLET PO SCH (12:06)
[2018-08-28] MEDS: ACETAMINOPHEN 325MG TABLET PO PRN (19:39)
[2018-08-28] MEDS: BUDESONIDE 0.5MG/2ML NEB HHN SCH (20:22)
[2018-08-28 21:28] LABS: PLATELET ESTIMATE NORMAL
[2018-08-29] VITALS (57 sets, daily range): BP systolic 104–216; BP diastolic 46–113
[2018-08-29] MEDS: IPRATROPIUM BROMIDE (0.02%) 0.5MG/2.5ML NEB HHN SCH ×6 (00:31→20:55)
[2018-08-29] MEDS: HYDROMORPHONE HCL/PF 2MG/ML CPJ IV PRN ×3 (00:40→19:57)
[2018-08-29] MEDS: SODIUM CHLORIDE 0.9% INJ 3ML FLUSH IVF SCH ×3 (05:03→21:10)
[2018-08-29] MEDS: HYDRALAZINE HCL 100MG TABLET PO SCH ×3 (05:07→22:34)
[2018-08-29] MEDS: CLONIDINE 0.2MG TABLET PO SCH ×3 (05:07→22:34)
[2018-08-29 05:38] LABS: BASOPHILS % 0.3 % (0.0-2.0); EOSINOPHILS % 1.3 % (0.0-5.0); HEMATOCRIT. 30.6 % (36.0-48.0); HEMOGLOBIN. 9.5 g/dL (12.0-16.0); LYMPHOCYTES % 11.5 % (20.0-50.0); MEAN CORPUSCULAR HEMOGLOBIN 26.4 pg (28.0-32.0); MEAN CORPUSCULAR VOLUME 84.9 fL (81.0-99.0); MEAN PLATELET VOLUME 11.6 fl (7.4-10.4); MONOCYTES % 10.7 % (2.0-8.0); NEUTROPHILS % 76.2 % (40.0-76.0); PLATELET 172 x1000/uL (130-400); RED CELL DISTRIBUTION WIDTH 15.3 % (11.6-14.6)
[2018-08-29] MEDS: BLOOD SUGAR DIAGNOSTIC STRIP TEST SCH ×4 (05:49→23:48)
[2018-08-29] MEDS: INSULIN LISPRO 100 UNITS/ML SUBCUT SCH ×3 (05:54→18:53)
[2018-08-29] MEDS: ACETAMINOPHEN 325MG TABLET PO PRN ×2 (07:31→08:46)
[2018-08-29] MEDS: LORAZEPAM 2MG/ML CPJ IV PRN ×2 (07:31→19:13)
[2018-08-29] MEDS: BUDESONIDE 0.5MG/2ML NEB HHN SCH ×2 (07:53→20:55)
[2018-08-29] MEDS: HYDRALAZINE 20MG/ML VIAL IV PRN (07:54)
[2018-08-29] MEDS: ASPIRIN 81MG EC TABLET PO SCH (08:24)
[2018-08-29] MEDS: SOTALOL HCL 120MG TABLET PO SCH ×2 (08:24→21:10)
[2018-08-29] MEDS: FUROSEMIDE 20MG TABLET PO SCH ×2 (08:24→21:10)
[2018-08-29] MEDS: LOSARTAN POTASSIUM 50 MG TABLET PO SCH (08:24)
[2018-08-29] MEDS: FAMOTIDINE 20MG TABLET PO SCH (08:25)
[2018-08-29] MEDS: ENOXAPARIN 80MG/0.8ML SYR SUBCUT SCH (09:00)
[2018-08-29] MEDS: DOCUSATE SODIUM SUGAR FREE 100MG/10ML UDC NG SCH (09:52)
[2018-08-29] MEDS: LEVOFLOXACIN 500MG PREMIX 100 ML IV SCH (10:07)
[2018-08-29 12:03] LABS: BG BASE EXCESS 1.5 mmol/L (-2.0-2.0); BG CARBOXYHEMOGLOBIN 0.5 % (0.5-1.5); BG DEOXYHEMOGLOBIN 4.5 % (0.0-5.0); BG HCO3 ACT 26.8 mmol/L (22.0-26.0); BG METHEMOGLOBIN 0.2 % (0.0-1.5); BG OXYGEN SATURATION 95.5 % (92.0-98.5); BG OXYHEMOGLOBIN 94.8 % (94.0-97.0); BG PH 7.384 (7.350-7.450); BG PO2 80.6 mmHg (75.0-100.0); BG SAMPLE SITE RIGHT RADIAL; BG TIDAL VOLUME(mL) 500 mL; BG TOTAL HEMOGLOBIN 10.1 g/dL (12.0-18.0); BG VENT MODE VENT - SIMV; BG VENT RATE 6 set
[2018-08-29] MEDS: METRONIDAZOLE 500 MG PREMIX 100 ML IV SCH ×2 (12:58→21:09)
[2018-08-29] MEDS: SODIUM CHLORIDE 0.45% 1,000 ML IV SCH (16:05)
[2018-08-29] MEDS ORDERED: QUETIAPINE FUMARATE 25MG TABLET PO SCH (21:00)
[2018-08-29] MEDS: QUETIAPINE FUMARATE 25MG TABLET PO SCH (21:10)
[2018-08-30] VITALS (47 sets, daily range): BP systolic 116–168; BP diastolic 53–72
[2018-08-30] MEDS: INSULIN LISPRO 100 UNITS/ML SUBCUT SCH ×4 (00:02→18:49)
[2018-08-30] MEDS: IPRATROPIUM BROMIDE (0.02%) 0.5MG/2.5ML NEB HHN SCH ×3 (00:39→09:14)
[2018-08-30] MEDS: SODIUM CHLORIDE 0.9% INJ 3ML FLUSH IVF SCH ×3 (05:18→21:49)
[2018-08-30] MEDS: HYDRALAZINE HCL 100MG TABLET PO SCH ×3 (05:22→21:32)
[2018-08-30] MEDS: METRONIDAZOLE 500 MG PREMIX 100 ML IV SCH ×3 (05:22→21:30)
[2018-08-30] MEDS: CLONIDINE 0.2MG TABLET PO SCH ×3 (05:22→21:31)
[2018-08-30] MEDS: BLOOD SUGAR DIAGNOSTIC STRIP TEST SCH (05:23)
[2018-08-30 06:01] LABS: BASOPHILS % 0.3 % (0.0-2.0); EOSINOPHILS % 1.5 % (0.0-5.0); HEMATOCRIT. 27.5 % (36.0-48.0); HEMOGLOBIN. 8.6 g/dL (12.0-16.0); LYMPHOCYTES % 15.5 % (20.0-50.0); MEAN CORPUSCULAR HEMOGLOBIN 26.8 pg (28.0-32.0); MEAN CORPUSCULAR VOLUME 85.9 fL (81.0-99.0); MEAN PLATELET VOLUME 11.2 fl (7.4-10.4); MONOCYTES % 12.5 % (2.0-8.0); NEUTROPHILS % 70.2 % (40.0-76.0); PLATELET 159 x1000/uL (130-400); RED BLOOD CELL COUNT 3.21 mill/uL (4.2-5.4); RED CELL DISTRIBUTION WIDTH 15.6 % (11.6-14.6)
[2018-08-30] MEDS: DOCUSATE SODIUM SUGAR FREE 100MG/10ML UDC NG SCH (08:13)
[2018-08-30] MEDS: FUROSEMIDE 20MG TABLET PO SCH ×2 (08:13→21:32)
[2018-08-30] MEDS: SOTALOL HCL 120MG TABLET PO SCH ×3 (08:13→21:32)
[2018-08-30] MEDS: ASPIRIN 81MG EC TABLET PO SCH (08:13)
[2018-08-30] MEDS: FAMOTIDINE 20MG TABLET PO SCH (08:19)
[2018-08-30 08:44] LABS: BG BASE EXCESS 3.3 mmol/L (-2.0-2.0); BG CARBOXYHEMOGLOBIN 0.4 % (0.5-1.5); BG DEOXYHEMOGLOBIN 2.7 % (0.0-5.0); BG FRACTION INSPIRED OXYGEN 40; BG HCO3 ACT 28.8 mmol/L (22.0-26.0); BG OXYGEN SATURATION 97.3 % (92.0-98.5); BG OXYHEMOGLOBIN 96.9 % (94.0-97.0); BG PCO2 48.7 mmHg (35.0-45.0); BG PO2 100.9 mmHg (75.0-100.0); BG PRESSURE SUPPORT 12; BG SAMPLE SITE RIGHT RADIAL; BG TIDAL VOLUME(mL) 500 mL; BG VENT MODE VENT - SIMV; BG VENT RATE 6 set
[2018-08-30] MEDS ORDERED: FAMOTIDINE 20MG TABLET PO SCH (09:00)
[2018-08-30] MEDS: BUDESONIDE 0.5MG/2ML NEB HHN SCH ×2 (09:14→20:40)
[2018-08-30] MEDS: LEVOFLOXACIN 250MG PREMIX 50 ML IV SCH (09:55)
[2018-08-30 11:47] LABS: TOTAL IRON BINDING CAPACITY 224 ug/dL (250-450)
[2018-08-30] MEDS: ACETYLCYSTEINE 100MG/ML 10% VIAL 4ML INH SCH (13:08)
[2018-08-30] MEDS: IPRATROPIUM/ALBUTEROL 0.5-3(2.5)MG/3ML NEB HHN SCH ×3 (13:08→20:40)
[2018-08-30] MEDS: SODIUM CHLORIDE 0.45% 1,000 ML IV SCH (13:23)
[2018-08-30] MEDS: QUETIAPINE FUMARATE 25MG TABLET PO SCH (21:31)
[2018-08-31] VITALS (72 sets, daily range): BP systolic 122–221; BP diastolic 51–136
[2018-08-31] MEDS: ACETYLCYSTEINE 100MG/ML 10% VIAL 4ML INH SCH ×3 (00:40→12:24)
[2018-08-31] MEDS: IPRATROPIUM/ALBUTEROL 0.5-3(2.5)MG/3ML NEB HHN SCH ×6 (00:41→20:42)
[2018-08-31] MEDS: BLOOD SUGAR DIAGNOSTIC STRIP TEST SCH ×5 (00:58→23:20)
[2018-08-31] MEDS: INSULIN LISPRO 100 UNITS/ML SUBCUT SCH ×5 (00:58→23:21)
[2018-08-31] MEDS: SODIUM CHLORIDE 0.9% INJ 3ML FLUSH IVF SCH ×3 (05:45→21:02)
[2018-08-31] MEDS: METRONIDAZOLE 500 MG PREMIX 100 ML IV SCH ×3 (06:26→21:03)
[2018-08-31] MEDS: CLONIDINE 0.2MG TABLET PO SCH ×3 (06:27→21:03)
[2018-08-31] MEDS: HYDRALAZINE HCL 100MG TABLET PO SCH ×3 (06:27→21:02)
[2018-08-31] MEDS: HYDRALAZINE 20MG/ML VIAL IV PRN ×2 (06:29→17:54)
[2018-08-31] MEDS: FAMOTIDINE 20MG TABLET PO SCH ×2 (08:31→16:04)
[2018-08-31] MEDS: DOCUSATE SODIUM SUGAR FREE 100MG/10ML UDC NG SCH (08:31)
[2018-08-31] MEDS: ASPIRIN 81MG EC TABLET PO SCH (08:31)
[2018-08-31] MEDS: SOTALOL HCL 120MG TABLET PO SCH ×2 (08:31→21:02)
[2018-08-31] MEDS: FUROSEMIDE 20MG TABLET PO SCH ×2 (08:31→21:03)
[2018-08-31 08:45] LABS: PROTHROMBIN TIME 10.3 sec (9.6-11.0)
[2018-08-31 08:47] LABS: BG BASE EXCESS -2.2 mmol/L (-2.0-2.0); BG CARBOXYHEMOGLOBIN 0.9 % (0.5-1.5); BG DEOXYHEMOGLOBIN 3.7 % (0.0-5.0); BG FRACTION INSPIRED OXYGEN 40; BG HCO3 ACT 22.3 mmol/L (22.0-26.0); BG METHEMOGLOBIN 0.2 % (0.0-1.5); BG OXYGEN SATURATION 96.3 % (92.0-98.5); BG OXYHEMOGLOBIN 95.2 % (94.0-97.0); BG PCO2 36.4 mmHg (35.0-45.0); BG PH 7.405 (7.350-7.450); BG SAMPLE SITE RIGHT RADIAL; BG TOTAL HEMOGLOBIN 7.3 g/dL (12.0-18.0)
[2018-08-31 08:48] LABS: BASOPHILS % 0.3 % (0.0-2.0); EOSINOPHILS % 1.6 % (0.0-5.0); HEMATOCRIT. 28.4 % (36.0-48.0); HEMOGLOBIN. 8.7 g/dL (12.0-16.0); LYMPHOCYTES % 14.3 % (20.0-50.0); MEAN CORPUSCULAR VOLUME 84.6 fL (81.0-99.0); MEAN PLATELET VOLUME 10.6 fl (7.4-10.4); MONOCYTES % 9.9 % (2.0-8.0); NEUTROPHILS % 73.9 % (40.0-76.0); PLATELET 171 x1000/uL (130-400); RED BLOOD CELL COUNT 3.36 mill/uL (4.2-5.4)
[2018-08-31] MEDS: BUDESONIDE 0.5MG/2ML NEB HHN SCH (08:59)
[2018-08-31] MEDS: LEVOFLOXACIN 250MG PREMIX 50 ML IV SCH (10:32)
[2018-08-31] MEDS: SODIUM CHLORIDE 0.45% 1,000 ML IV SCH (10:32)
[2018-08-31 10:37] LABS: BG VENT MODE SIMV; BG VENT RATE 6 set
[2018-08-31 10:38] LABS: BG PEEP (cmH2O) 5 cmH2O; BG TIDAL VOLUME(mL) 500 mL
[2018-08-31 10:39] LABS: BG PRESSURE SUPPORT 10
[2018-08-31] MEDS ORDERED: FUROSEMIDE 20MG/2ML VIAL IVP NR (12:30)
[2018-08-31] MEDS: INSULIN GLARGINE UD 100 UNITS/ML SYR SUBCUT SCH (13:16)
[2018-08-31 13:30] LABS: BG BASE EXCESS 5.4 mmol/L (-2.0-2.0); BG CARBOXYHEMOGLOBIN 0.2 % (0.5-1.5); BG DEOXYHEMOGLOBIN 5.7 % (0.0-5.0); BG FRACTION INSPIRED OXYGEN 35; BG HCO3 ACT 30.4 mmol/L (22.0-26.0); BG METHEMOGLOBIN 0.2 % (0.0-1.5); BG OXYGEN SATURATION 94.3 % (92.0-98.5); BG OXYHEMOGLOBIN 93.9 % (94.0-97.0); BG PCO2 46.8 mmHg (35.0-45.0); BG PH 7.431 (7.350-7.450); BG SAMPLE SITE RIGHT RADIAL; BG TOTAL HEMOGLOBIN 10.1 g/dL (12.0-18.0); BG VENT MODE T-TUBE
[2018-08-31] MEDS: LORAZEPAM 2MG/ML CPJ IV PRN (18:13)
[2018-08-31 18:29] LABS: BG BASE EXCESS 2.3 mmol/L (-2.0-2.0); BG CARBOXYHEMOGLOBIN 0.3 % (0.5-1.5); BG DEOXYHEMOGLOBIN 7.3 % (0.0-5.0); BG FRACTION INSPIRED OXYGEN 100; BG HCO3 ACT 28.9 mmol/L (22.0-26.0); BG METHEMOGLOBIN 0.2 % (0.0-1.5); BG OXYGEN SATURATION 92.7 % (92.0-98.5); BG OXYHEMOGLOBIN 92.2 % (94.0-97.0); BG PCO2 54.4 mmHg (35.0-45.0); BG PH 7.343 (7.350-7.450); BG PO2 71.1 mmHg (75.0-100.0); BG SAMPLE SITE RIGHT RADIAL; BG TOTAL HEMOGLOBIN 11.3 g/dL (12.0-18.0); BG VENT MODE MASK - AEROSOL
[2018-08-31] MEDS: RACEPINEPHRINE 2.25% 0.5ML NEB VIAL HHN PRN (18:37)
[2018-08-31] MEDS: CLONIDINE 0.1MG TABLET PO PRN (18:39)
[2018-08-31] MEDS: NITROGLYCERIN 50MG PREMIX 250 ML IV PRN (19:10)
[2018-08-31] MEDS: QUETIAPINE FUMARATE 25MG TABLET PO SCH (21:03)
[2018-09-01] VITALS (87 sets, daily range): BP systolic 117–207; BP diastolic 32–111
[2018-09-01] MEDS: IPRATROPIUM/ALBUTEROL 0.5-3(2.5)MG/3ML NEB HHN SCH ×4 (00:20→22:10)
[2018-09-01] MEDS: RACEPINEPHRINE 2.25% 0.5ML NEB VIAL HHN SCH ×2 (00:21→15:45)
[2018-09-01] MEDS: ACETYLCYSTEINE 100MG/ML 10% VIAL 4ML INH SCH ×3 (00:21→22:10)
[2018-09-01] MEDS: NITROGLYCERIN 50MG PREMIX 250 ML IV PRN (04:34)
[2018-09-01] MEDS: SODIUM CHLORIDE 0.45% 1,000 ML IV SCH (04:37)
[2018-09-01] MEDS: BLOOD SUGAR DIAGNOSTIC STRIP TEST SCH ×4 (06:08→23:25)
[2018-09-01] MEDS: SODIUM CHLORIDE 0.9% INJ 3ML FLUSH IVF SCH ×3 (06:08→21:02)
[2018-09-01] MEDS: CLONIDINE 0.2MG TABLET PO SCH ×3 (06:08→21:53)
[2018-09-01] MEDS: HYDRALAZINE HCL 100MG TABLET PO SCH ×3 (06:08→21:02)
[2018-09-01] MEDS: METRONIDAZOLE 500 MG PREMIX 100 ML IV SCH ×3 (06:11→21:02)
[2018-09-01] MEDS: INSULIN LISPRO 100 UNITS/ML SUBCUT SCH ×4 (06:46→23:25)
[2018-09-01] MEDS: FAMOTIDINE 20MG TABLET PO SCH ×2 (08:44→17:25)
[2018-09-01] MEDS: SOTALOL HCL 120MG TABLET PO SCH ×2 (08:44→21:01)
[2018-09-01] MEDS: ASPIRIN 81MG EC TABLET PO SCH (08:44)
[2018-09-01] MEDS: FUROSEMIDE 20MG TABLET PO SCH ×2 (08:44→21:01)
[2018-09-01] MEDS: MINOXIDIL 2.5MG TABLET NG SCH (08:44)
[2018-09-01 08:48] LABS: BASOPHILS % 0.5 % (0.0-2.0); EOSINOPHILS % 0.5 % (0.0-5.0); HEMATOCRIT. 28.8 % (36.0-48.0); LYMPHOCYTES % 7.8 % (20.0-50.0); MEAN CORPUSCULAR HEMOGLOBIN 26.6 pg (28.0-32.0); MEAN CORPUSCULAR VOLUME 84.9 fL (81.0-99.0); MEAN PLATELET VOLUME 10.9 fl (7.4-10.4); MONOCYTES % 7.4 % (2.0-8.0); NEUTROPHILS % 83.8 % (40.0-76.0); PLATELET 192 x1000/uL (130-400); RED BLOOD CELL COUNT 3.39 mill/uL (4.2-5.4); RED CELL DISTRIBUTION WIDTH 15.1 % (11.6-14.6)
[2018-09-01 08:55] LABS: CHLORIDE 107 mEq/L (98-107)
[2018-09-01] MEDS: DOCUSATE SODIUM SUGAR FREE 100MG/10ML UDC NG SCH (10:20)
[2018-09-01] MEDS: LEVOFLOXACIN 500MG PREMIX 100 ML IV SCH (10:22)
[2018-09-01] MEDS: INSULIN GLARGINE UD 100 UNITS/ML SYR SUBCUT SCH (10:23)
[2018-09-01] MEDS ORDERED: FUROSEMIDE 20MG/2ML VIAL IVP NR (11:30)
[2018-09-01 12:00] LABS: BG BASE EXCESS 4.5 mmol/L (-2.0-2.0); BG BILEVEL POS AIRWAY PRESSURE 15/5; BG DEOXYHEMOGLOBIN 2.6 % (0.0-5.0); BG FRACTION INSPIRED OXYGEN 50; BG HCO3 ACT 29.7 mmol/L (22.0-26.0); BG METHEMOGLOBIN 0.2 % (0.0-1.5); BG OXYGEN SATURATION 97.4 % (92.0-98.5); BG OXYHEMOGLOBIN 97.2 % (94.0-97.0); BG PCO2 46.9 mmHg (35.0-45.0); BG PH 7.419 (7.350-7.450); BG PO2 103.4 mmHg (75.0-100.0); BG SAMPLE SITE RIGHT RADIAL; BG VENT MODE MASK - BIPAP; BG VENT RATE 16 set
[2018-09-01] MEDS: QUETIAPINE FUMARATE 25MG TABLET PO SCH (21:02)
[2018-09-02] VITALS (72 sets, daily range): BP systolic 115–189; BP diastolic 19–97
[2018-09-02] MEDS: RACEPINEPHRINE 2.25% 0.5ML NEB VIAL HHN SCH (01:26)
[2018-09-02] MEDS: IPRATROPIUM/ALBUTEROL 0.5-3(2.5)MG/3ML NEB HHN SCH ×5 (01:26→21:26)
[2018-09-02 05:23] LABS: BASOPHILS % 0.2 % (0.0-2.0); EOSINOPHILS % 0.7 % (0.0-5.0); HEMOGLOBIN. 9.1 g/dL (12.0-16.0); LYMPHOCYTES % 12.6 % (20.0-50.0); MEAN CORPUSCULAR HEMOGLOBIN 26.6 pg (28.0-32.0); MEAN CORPUSCULAR VOLUME 84.4 fL (81.0-99.0); MEAN PLATELET VOLUME 11.4 fl (7.4-10.4); MONOCYTES % 9.1 % (2.0-8.0); NEUTROPHILS % 77.4 % (40.0-76.0); PLATELET 200 x1000/uL (130-400); RED BLOOD CELL COUNT 3.43 mill/uL (4.2-5.4); RED CELL DISTRIBUTION WIDTH 15.2 % (11.6-14.6)
[2018-09-02] MEDS: BLOOD SUGAR DIAGNOSTIC STRIP TEST SCH ×4 (05:36→23:46)
[2018-09-02] MEDS: CLONIDINE 0.2MG TABLET PO SCH ×3 (05:42→21:04)
[2018-09-02] MEDS: SODIUM CHLORIDE 0.9% INJ 3ML FLUSH IVF SCH ×3 (05:42→21:04)
[2018-09-02] MEDS: HYDRALAZINE HCL 100MG TABLET PO SCH ×3 (05:42→21:04)
[2018-09-02] MEDS: METRONIDAZOLE 500 MG PREMIX 100 ML IV SCH ×3 (05:42→21:03)
[2018-09-02] MEDS: INSULIN LISPRO 100 UNITS/ML SUBCUT SCH ×4 (05:43→23:46)
[2018-09-02 08:05] LABS: BG BASE EXCESS 5.2 mmol/L (-2.0-2.0); BG BILEVEL POS AIRWAY PRESSURE ST=15/5; BG CARBOXYHEMOGLOBIN 0.4 % (0.5-1.5); BG DEOXYHEMOGLOBIN 1.9 % (0.0-5.0); BG FRACTION INSPIRED OXYGEN 50; BG METHEMOGLOBIN 0.3 % (0.0-1.5); BG OXYGEN SATURATION 98.1 % (92.0-98.5); BG OXYHEMOGLOBIN 97.4 % (94.0-97.0); BG PCO2 45.7 mmHg (35.0-45.0); BG PH 7.435 (7.350-7.450); BG PO2 110.7 mmHg (75.0-100.0); BG PRESSURE SUPPORT 10; BG SAMPLE SITE RIGHT RADIAL; BG TOTAL HEMOGLOBIN 9.5 g/dL (12.0-18.0); BG VENT MODE MASK - BIPAP; BG VENT RATE 16 set
[2018-09-02] MEDS: ACETYLCYSTEINE 100MG/ML 10% VIAL 4ML INH SCH ×2 (08:51→17:38)
[2018-09-02] MEDS: DOCUSATE SODIUM SUGAR FREE 100MG/10ML UDC NG SCH (09:00)
[2018-09-02] MEDS: ASPIRIN 81MG TABLET NG SCH (10:02)
[2018-09-02] MEDS: MINOXIDIL 2.5MG TABLET NG SCH (10:02)
[2018-09-02] MEDS: FAMOTIDINE 20MG TABLET PO SCH ×2 (10:02→17:35)
[2018-09-02] MEDS: FUROSEMIDE 20MG TABLET PO SCH ×2 (10:02→20:59)
[2018-09-02] MEDS: LEVOFLOXACIN 500MG PREMIX 100 ML IV SCH (10:02)
[2018-09-02] MEDS: SOTALOL HCL 120MG TABLET PO SCH ×2 (10:02→20:59)
[2018-09-02] MEDS: INSULIN GLARGINE UD 100 UNITS/ML SYR SUBCUT SCH (10:03)
[2018-09-02] MEDS: SODIUM CHLORIDE 0.45% 1,000 ML IV SCH (20:00)
[2018-09-02] MEDS: QUETIAPINE FUMARATE 25MG TABLET PO SCH (20:59)
[2018-09-03] VITALS (96 sets, daily range): BP systolic 114–219; BP diastolic 28–127
[2018-09-03] MEDS: IPRATROPIUM/ALBUTEROL 0.5-3(2.5)MG/3ML NEB HHN SCH ×7 (00:55→20:47)
[2018-09-03] MEDS: ACETYLCYSTEINE 100MG/ML 10% VIAL 4ML INH SCH ×3 (00:55→15:33)
[2018-09-03] MEDS: BLOOD SUGAR DIAGNOSTIC STRIP TEST SCH ×4 (05:43→23:08)
[2018-09-03] MEDS: INSULIN LISPRO 100 UNITS/ML SUBCUT SCH ×4 (05:43→23:08)
[2018-09-03] MEDS: METRONIDAZOLE 500 MG PREMIX 100 ML IV SCH ×3 (05:44→21:07)
[2018-09-03] MEDS: HYDRALAZINE HCL 100MG TABLET PO SCH ×3 (05:44→21:07)
[2018-09-03] MEDS: CLONIDINE 0.2MG TABLET PO SCH ×3 (05:44→21:06)
[2018-09-03] MEDS: SODIUM CHLORIDE 0.9% INJ 3ML FLUSH IVF SCH ×3 (05:44→21:07)
[2018-09-03 06:00] LABS: BASOPHILS % 0.6 % (0.0-2.0); EOSINOPHILS % 0.4 % (0.0-5.0); HEMOGLOBIN. 9.1 g/dL (12.0-16.0); LYMPHOCYTES % 12.3 % (20.0-50.0); MEAN CORPUSCULAR HEMOGLOBIN 26.7 pg (28.0-32.0); MEAN CORPUSCULAR VOLUME 84.9 fL (81.0-99.0); MEAN PLATELET VOLUME 11.7 fl (7.4-10.4); MONOCYTES % 9.3 % (2.0-8.0); NEUTROPHILS % 77.4 % (40.0-76.0); PLATELET 202 x1000/uL (130-400); RED BLOOD CELL COUNT 3.42 mill/uL (4.2-5.4); RED CELL DISTRIBUTION WIDTH 15.4 % (11.6-14.6)
[2018-09-03] MEDS: DOCUSATE SODIUM SUGAR FREE 100MG/10ML UDC NG SCH (09:00)
[2018-09-03] MEDS: SOTALOL HCL 120MG TABLET PO SCH ×2 (09:12→21:06)
[2018-09-03] MEDS: FUROSEMIDE 20MG TABLET PO SCH ×2 (09:12→21:06)
[2018-09-03] MEDS: ASPIRIN 81MG TABLET NG SCH (09:13)
[2018-09-03] MEDS: FAMOTIDINE 20MG TABLET PO SCH ×2 (09:13→16:51)
[2018-09-03] MEDS: MINOXIDIL 2.5MG TABLET NG SCH (09:13)
[2018-09-03] MEDS: LORAZEPAM 2MG/ML CPJ IV PRN (09:17)
[2018-09-03] MEDS: LEVOFLOXACIN 500MG PREMIX 100 ML IV SCH (09:31)
[2018-09-03] MEDS: INSULIN GLARGINE UD 100 UNITS/ML SYR SUBCUT SCH (09:32)
[2018-09-03] MEDS: HYDRALAZINE 20MG/ML VIAL IV PRN (10:25)
[2018-09-03] MEDS: PREDNISONE 20MG TABLET PO SCH ×3 (10:29→21:06)
[2018-09-03 10:49] LABS: BG CARBOXYHEMOGLOBIN 0.6 % (0.5-1.5); BG DEOXYHEMOGLOBIN 6.5 % (0.0-5.0); BG FRACTION INSPIRED OXYGEN 40; BG HCO3 ACT 33.7 mmol/L (22.0-26.0); BG METHEMOGLOBIN 0.2 % (0.0-1.5); BG OXYGEN SATURATION 93.4 % (92.0-98.5); BG OXYHEMOGLOBIN 92.7 % (94.0-97.0); BG PCO2 60.1 mmHg (35.0-45.0); BG PH 7.367 (7.350-7.450); BG PO2 75.5 mmHg (75.0-100.0); BG SAMPLE SITE LEFT RADIAL; BG TOTAL HEMOGLOBIN 10.6 g/dL (12.0-18.0); BG VENT MODE MASK - AEROSOL
[2018-09-03] MEDS: AMLODIPINE 5MG TABLET NG SCH (11:28)
[2018-09-03] MEDS ORDERED: ALPRAZOLAM 0.5 MG TABLET PO PRN (11:30)
[2018-09-03] MEDS: RACEPINEPHRINE 2.25% 0.5ML NEB VIAL HHN PRN (12:49)
[2018-09-03] MEDS ORDERED: lithium (12:57)
[2018-09-03] MEDS ORDERED: TERBUTALINE SULFATE 1MG/ML VIAL SUBCUT SCH (13:00)
[2018-09-03] MEDS: CLONIDINE 0.1MG TABLET PO PRN (13:13)
[2018-09-03] MEDS ORDERED: FUROSEMIDE 40MG/4ML VIAL IVP NR (16:00)
[2018-09-03] MEDS: QUETIAPINE FUMARATE 25MG TABLET PO SCH (21:07)
[2018-09-03] MEDS: SODIUM CHLORIDE 0.45% 1,000 ML IV SCH (21:36)
[2018-09-04] VITALS (83 sets, daily range): BP systolic 107–160; BP diastolic 40–84
[2018-09-04] MEDS: IPRATROPIUM/ALBUTEROL 0.5-3(2.5)MG/3ML NEB HHN SCH ×5 (00:29→17:37)
[2018-09-04] MEDS: ACETYLCYSTEINE 100MG/ML 10% VIAL 4ML INH SCH ×2 (00:29→08:28)
[2018-09-04] MEDS: CLONIDINE 0.2MG TABLET PO SCH ×3 (05:45→21:49)
[2018-09-04] MEDS: HYDRALAZINE HCL 100MG TABLET PO SCH ×3 (05:50→21:49)
[2018-09-04] MEDS: PREDNISONE 20MG TABLET PO SCH ×3 (05:50→21:49)
[2018-09-04] MEDS: BLOOD SUGAR DIAGNOSTIC STRIP TEST SCH ×4 (05:50→23:51)
[2018-09-04] MEDS: INSULIN LISPRO 100 UNITS/ML SUBCUT SCH ×4 (05:51→23:52)
[2018-09-04] MEDS: SODIUM CHLORIDE 0.9% INJ 3ML FLUSH IVF SCH ×3 (05:51→21:50)
[2018-09-04] MEDS: ASPIRIN 81MG TABLET NG SCH (07:33)
[2018-09-04] MEDS: FAMOTIDINE 20MG TABLET PO SCH ×2 (08:38→18:16)
[2018-09-04] MEDS: DOCUSATE SODIUM SUGAR FREE 100MG/10ML UDC NG SCH (08:38)
[2018-09-04] MEDS: MINOXIDIL 2.5MG TABLET NG SCH (08:39)
[2018-09-04] MEDS: SOTALOL HCL 120MG TABLET PO SCH ×2 (08:39→21:49)
[2018-09-04] MEDS: FUROSEMIDE 20MG TABLET PO SCH ×2 (08:39→21:49)
[2018-09-04] MEDS: AMLODIPINE 5MG TABLET NG SCH (08:40)
[2018-09-04] MEDS: INSULIN GLARGINE UD 100 UNITS/ML SYR SUBCUT SCH (09:39)
[2018-09-04] MEDS: SODIUM CHLORIDE 0.45% 1,000 ML IV SCH (20:16)
[2018-09-04] MEDS: QUETIAPINE FUMARATE 25MG TABLET PO SCH (21:49)
[2018-09-05] VITALS (44 sets, daily range): BP systolic 103–188; BP diastolic 38–116
[2018-09-05] MEDS: IPRATROPIUM/ALBUTEROL 0.5-3(2.5)MG/3ML NEB HHN SCH ×6 (00:40→20:34)
[2018-09-05 05:44] LABS: HEMATOCRIT. 28.9 % (36.0-48.0); HEMOGLOBIN. 9.1 g/dL (12.0-16.0); MEAN CORPUSCULAR HEMOGLOBIN 26.5 pg (28.0-32.0); MEAN CORPUSCULAR VOLUME 84.3 fL (81.0-99.0); MEAN PLATELET VOLUME 11.8 fl (7.4-10.4); PLATELET 204 x1000/uL (130-400); RED BLOOD CELL COUNT 3.43 mill/uL (4.2-5.4)
[2018-09-05] MEDS: CLONIDINE 0.2MG TABLET PO SCH ×3 (06:03→21:27)
[2018-09-05] MEDS: HYDRALAZINE HCL 100MG TABLET PO SCH ×3 (06:04→21:27)
[2018-09-05] MEDS: PREDNISONE 20MG TABLET PO SCH ×2 (06:04→17:37)
[2018-09-05] MEDS: BLOOD SUGAR DIAGNOSTIC STRIP TEST SCH ×3 (06:04→17:37)
[2018-09-05] MEDS: INSULIN LISPRO 100 UNITS/ML SUBCUT SCH ×3 (06:15→17:37)
[2018-09-05] MEDS: SODIUM CHLORIDE 0.9% INJ 3ML FLUSH IVF SCH ×3 (06:17→21:28)
[2018-09-05] MEDS: INSULIN GLARGINE UD 100 UNITS/ML SYR SUBCUT SCH (09:03)
[2018-09-05] MEDS: DOCUSATE SODIUM SUGAR FREE 100MG/10ML UDC NG SCH (09:03)
[2018-09-05] MEDS: FAMOTIDINE 20MG TABLET PO SCH ×2 (09:03→17:37)
[2018-09-05] MEDS: SOTALOL HCL 120MG TABLET PO SCH ×2 (09:03→21:27)
[2018-09-05] MEDS: FUROSEMIDE 20MG TABLET PO SCH ×2 (09:04→21:26)
[2018-09-05] MEDS: AMLODIPINE 5MG TABLET NG SCH (09:04)
[2018-09-05] MEDS: MINOXIDIL 2.5MG TABLET NG SCH (09:04)
[2018-09-05 11:54] LABS: PLATELET ESTIMATE NORMAL
[2018-09-05] MEDS: LORAZEPAM 2MG/ML CPJ IV PRN (20:20)
[2018-09-05] MEDS: SODIUM CHLORIDE 0.45% 1,000 ML IV SCH (20:20)
[2018-09-05] MEDS: QUETIAPINE FUMARATE 25MG TABLET PO SCH (21:26)
[2018-09-06] VITALS (31 sets, daily range): BP systolic 96–173; BP diastolic 47–78
[2018-09-06] MEDS: IPRATROPIUM/ALBUTEROL 0.5-3(2.5)MG/3ML NEB HHN SCH ×6 (00:10→20:58)
[2018-09-06] MEDS: BLOOD SUGAR DIAGNOSTIC STRIP TEST SCH ×4 (00:42→18:41)
[2018-09-06] MEDS: INSULIN LISPRO 100 UNITS/ML SUBCUT SCH ×4 (00:42→18:41)
[2018-09-06] MEDS ORDERED: SODIUM CHLORIDE 0.45% 1,000 ML IV SCH (01:00)
[2018-09-06] MEDS: HYDRALAZINE HCL 100MG TABLET PO SCH ×3 (06:21→21:07)
[2018-09-06] MEDS: SODIUM CHLORIDE 0.9% INJ 3ML FLUSH IVF SCH ×3 (06:21→22:04)
[2018-09-06] MEDS: CLONIDINE 0.2MG TABLET PO SCH ×3 (06:21→21:08)
[2018-09-06 06:23] LABS: BASOPHILS % 0.2 % (0.0-2.0); HEMOGLOBIN. 9.2 g/dL (12.0-16.0); MEAN CORPUSCULAR HEMOGLOBIN 26.8 pg (28.0-32.0); MEAN CORPUSCULAR VOLUME 84.4 fL (81.0-99.0); MONOCYTES % 5.2 % (2.0-8.0); NEUTROPHILS % 85.6 % (40.0-76.0); PLATELET 226 x1000/uL (130-400); RED BLOOD CELL COUNT 3.44 mill/uL (4.2-5.4); RED CELL DISTRIBUTION WIDTH 15.6 % (11.6-14.6)
[2018-09-06] MEDS: SOTALOL HCL 120MG TABLET PO SCH ×2 (09:00→21:07)
[2018-09-06] MEDS: MINOXIDIL 2.5MG TABLET NG SCH (09:00)
[2018-09-06] MEDS: AMLODIPINE 5MG TABLET NG SCH (09:00)
[2018-09-06] MEDS: DOCUSATE SODIUM SUGAR FREE 100MG/10ML UDC NG SCH (10:12)
[2018-09-06] MEDS: FUROSEMIDE 20MG TABLET PO SCH ×2 (10:12→21:08)
[2018-09-06] MEDS: FAMOTIDINE 20MG TABLET PO SCH (10:13)
[2018-09-06] MEDS: INSULIN GLARGINE UD 100 UNITS/ML SYR SUBCUT SCH (10:13)
[2018-09-06] MEDS: PREDNISONE 20MG TABLET PO SCH ×2 (10:13→18:40)
[2018-09-06] MEDS ORDERED: QUETIAPINE FUMARATE 25MG TABLET PO SCH (21:00)
[2018-09-07] MEDS ORDERED: FAMOTIDINE 20MG TABLET PO SCH (09:00)
== END 2018-09-06 22:06 | DRG 870 ==
LOC: ER 19:20 → 3WST 08-22 01:09 → EDBEDREQTM 08-22 01:38 → EDBEDREQDT 08-22 01:38 → EDBEDREQSVC 08-22 01:38 → EDBEDREQ 08-22 01:38 → ENRESERV 08-22 01:57 → MICUSO 08-22 16:38
PROVIDERS: ADMIT Internal Medicine; ATTEND Internal Medicine
PROC: 5A1955Z Respiratory Ventilation, Greater than 96 Consecutive Hours (ICD-10-PCS; principal; 2018-08-22)
PROC: 0BH18EZ Insertion of Endotracheal Airway into Trachea, Via Natural or Artificial Opening Endoscopic (ICD-10-PCS; 2018-08-22)
PROC: 05HY33Z Insertion of Infusion Device into Upper Vein, Percutaneous Approach (ICD-10-PCS; 2018-08-22)
PROC: B54MZZA Ultrasonography of Right Upper Extremity Veins, Guidance (ICD-10-PCS; 2018-08-22)
PROC: 5A09357 Assistance with Respiratory Ventilation, Less than 24 Consecutive Hours, Continuous Positive Airway Pressure (ICD-10-PCS; 2018-08-31)
PROC: 5A09357 Assistance with Respiratory Ventilation, Less than 24 Consecutive Hours, Continuous Positive Airway Pressure (ICD-10-PCS; 2018-09-01)
PROC: 5A09357 Assistance with Respiratory Ventilation, Less than 24 Consecutive Hours, Continuous Positive Airway Pressure (ICD-10-PCS; 2018-09-02)
PROC: 5A09357 Assistance with Respiratory Ventilation, Less than 24 Consecutive Hours, Continuous Positive Airway Pressure (ICD-10-PCS; 2018-09-03)
PROC: 5A09357 Assistance with Respiratory Ventilation, Less than 24 Consecutive Hours, Continuous Positive Airway Pressure (ICD-10-PCS; 2018-09-04)
PROC: 5A09357 Assistance with Respiratory Ventilation, Less than 24 Consecutive Hours, Continuous Positive Airway Pressure (ICD-10-PCS; 2018-09-05)
PROC: 0W993ZZ Drainage of Right Pleural Cavity, Percutaneous Approach (ICD-10-PCS; 2018-09-06)
PROC: 5A09357 Assistance with Respiratory Ventilation, Less than 24 Consecutive Hours, Continuous Positive Airway Pressure (ICD-10-PCS; 2018-09-06)
DX: A41.9 Sepsis, unspecified organism (principal); J96.00 Acute respiratory failure, unspecified whether with hypoxia or hypercapnia; J18.9 Pneumonia, unspecified organism; N17.0 Acute kidney failure with tubular necrosis; I50.43 Acute on chronic combined systolic (congestive) and diastolic (congestive) heart failure; E44.1 Mild protein-calorie malnutrition; I47.1 Supraventricular tachycardia; I42.9 Cardiomyopathy, unspecified; E87.0 Hyperosmolality and hypernatremia; J98.11 Atelectasis; N39.0 Urinary tract infection, site not specified; J81.1 Chronic pulmonary edema; I48.91 Unspecified atrial fibrillation; I11.0 Hypertensive heart disease with heart failure; I34.0 Nonrheumatic mitral (valve) insufficiency; E78.5 Hyperlipidemia, unspecified; T88.4XXA Failed or difficult intubation, initial encounter; J38.4 Edema of larynx; D50.9 Iron deficiency anemia, unspecified; E11.65 Type 2 diabetes mellitus with hyperglycemia; E87.5 Hyperkalemia; F17.200 Nicotine dependence, unspecified, uncomplicated; F41.9 Anxiety disorder, unspecified; R47.02 Dysphasia; N28.1 Cyst of kidney, acquired; T50.2X5A Adverse effect of carbonic-anhydrase inhibitors, benzothiadiazides and other diuretics, initial encounter; I25.10 Atherosclerotic heart disease of native coronary artery without angina pectoris; I50.9 Heart failure, unspecified; R74.0 Nonspecific elevation of levels of transaminase and lactic acid dehydrogenase [LDH]; D64.9 Anemia, unspecified; R16.0 Hepatomegaly, not elsewhere classified; K76.1 Chronic passive congestion of liver; Z86.73 Personal history of transient ischemic attack (TIA), and cerebral infarction without residual deficits; Z79.02 Long term (current) use of antithrombotics/antiplatelets; Z79.899 Other long term (current) drug therapy; Y92.89 Other specified places as the place of occurrence of the external cause; Z98.891 History of uterine scar from previous surgery; Z68.27 Body mass index [BMI] 27.0-27.9, adult; Z79.4 Long term (current) use of insulin
CPT/HCPCS: 31500; 32555; 36415; 36569; 36600; 71045; 71275; 74018; 76604; 76700; 76770; 76937; 80048; 80061; 80305; 82040; 82375; 82550; 82553; 82728; 82805; 82962; 83036; 83540; 83550; 83605; 83615; 83735; 83880; 84145; 84439; 84443; 84478; 84484; 85379; 86705; 86709; 86803; 87070; 87340; 87493; 92610; 93005; 93306; 93970; 94002; 94003; 94640; 94660; 97166; 99291; A6261; C1725; J0360; J1170; J1200; J1650; J1742; J1815; J1940; J1956; J2060; J2405; J2704; J3105; J3480; J3490; J7030; J7040; J7050; J7060; J7512; J7608; J7620; J7626; Q9967; A4315

== ENCOUNTER 2019-01-20 15:32 | Inpatient (IN) | payer MEDICAID, MEDICARE ==
[~2019-01-20] VITALS: Ht 167.6 cm; Wt 81.4 kg
[~2019-01-20 15:32] MED LIST changes: -ASPI-1158 PO; -ATOR10TA69 MT; -CLOP75TA16 PO; -HYDR12.529 MT; -LISI10TA5 MT; +LISI40TA4 PO; +lithium
[2019-01-20] MEDS ORDERED: ASPIRIN 81MG TABLET PO ONE (16:00)
[2019-01-20] MEDS ORDERED: FUROSEMIDE 40MG/4ML VIAL IV ONE (16:00)
[2019-01-20] MEDS: NITROGLYCERIN 0.4MG TABLET SL SL PRN ×2 (16:05→16:13)
[2019-01-20] MEDS ORDERED: DILTIAZEM HCL 120MG CAPSULE CD 24HR PO ONE (16:15)
[2019-01-20] MEDS ORDERED: DILTIAZEM HCL 5MG/ML 5ML VIAL IV ONE ×2 (16:15→17:15)
[2019-01-20 16:28] LABS: CHLORIDE 108 mEq/L (98-107)
[2019-01-20 16:32] LABS: BASOPHILS % 0.3 % (0.0-2.0); EOSINOPHILS % 0.6 % (0.0-5.0); HEMATOCRIT. 37.9 % (36.0-48.0); HEMOGLOBIN. 12.1 g/dL (12.0-16.0); LYMPHOCYTES % 30.8 % (20.0-50.0); MEAN CORPUSCULAR HEMOGLOBIN 26.2 pg (28.0-32.0); MEAN PLATELET VOLUME 10.5 fl (7.4-10.4); MONOCYTES % 9.2 % (2.0-8.0); NEUTROPHILS % 59.1 % (40.0-76.0); PLATELET 195 x1000/uL (130-400); RED BLOOD CELL COUNT 4.62 mill/uL (4.2-5.4); RED CELL DISTRIBUTION WIDTH 15.6 % (11.6-14.6)
[2019-01-20] MEDS ORDERED: DILTIAZEM HCL 125 MG in DEXT 5% WATER 100 ML IV ONE (17:15)
[2019-01-20] MEDS ORDERED: DILTIAZEM HCL 125 MG in DEXT 5% WATER 100 ML IV NR (17:30)
[2019-01-20] MEDS ORDERED: HYDROCODONE/ACETAMINOPHEN 5/325MG TABLET PO PRN (18:45)
[2019-01-20] MEDS ORDERED: GUAIFENESIN 200MG/10ML SUGAR FREE UDC PO PRN (18:45)
[2019-01-20] MEDS ORDERED: ONDANSETRON HCL 4MG/2ML INJ IV PRN (18:45)
[2019-01-20] MEDS ORDERED: ACETAMINOPHEN 650MG SUPP PR PRN (18:45)
[2019-01-20] MEDS ORDERED: MAGNESIUM/ALUMINUM HYDROXIDE/SIMETHICONE 30ML UDC PO PRN (18:45)
[2019-01-20] MEDS ORDERED: ACETAMINOPHEN 325MG TABLET PO PRN (18:45)
[2019-01-20] MEDS ORDERED: DIPHENHYDRAMINE 50MG/ML VIAL IV PRN (18:45)
[2019-01-20] MEDS ORDERED: CLONIDINE 0.1MG TABLET PO PRN (18:45)
[2019-01-20] MEDS ORDERED: NA PHOS,M-B/NA PHOS,DI-BA ENEMA 118ML PR PRN (18:45)
[2019-01-20] MEDS ORDERED: DOCUSATE SODIUM 100MG CAPSULE PO PRN (18:45)
[2019-01-20] MEDS ORDERED: ACETAMINOPHEN 650MG/20.3ML UDC GT PRN (18:45)
[2019-01-20 20:55] VITALS: BP 159/88
[2019-01-20] MEDS: ENOXAPARIN 40MG/0.4ML SYR SUBCUT SCH (21:41)
[2019-01-20] MEDS: SODIUM CHLORIDE 0.9% INJ 3ML FLUSH IVF SCH (21:42)
[2019-01-20 22:00] VITALS: BP_SYST 159; BP_SYST 169; BP_DIAS 118; BP_DIAS 88
[2019-01-21] VITALS (10 sets, daily range): BP systolic 119–182; BP diastolic 56–103
[2019-01-21 00:32] LABS: CREATINE KINASE MB FRACTION 2.4 ng/mL (0.5-3.6)
[2019-01-21] MEDS: SODIUM CHLORIDE 0.9% INJ 3ML FLUSH IVF SCH ×3 (06:11→22:04)
[2019-01-21 06:22] LABS: BASOPHILS % 0.3 % (0.0-2.0); EOSINOPHILS % 1.4 % (0.0-5.0); HEMATOCRIT. 35.7 % (36.0-48.0); HEMOGLOBIN. 11.5 g/dL (12.0-16.0); LYMPHOCYTES % 31.7 % (20.0-50.0); MEAN CORPUSCULAR HEMOGLOBIN 26.2 pg (28.0-32.0); MEAN CORPUSCULAR VOLUME 81.3 fL (81.0-99.0); MEAN PLATELET VOLUME 10.1 fl (7.4-10.4); NEUTROPHILS % 57.6 % (40.0-76.0); PLATELET 188 x1000/uL (130-400); RED CELL DISTRIBUTION WIDTH 15.7 % (11.6-14.6)
[2019-01-21 06:35] LABS: CHLORIDE 110 mEq/L (98-107)
[2019-01-21 06:44] LABS: LDL CHOLESTEROL 89 mg/dL (5-100)
[2019-01-21 06:45] LABS: CREATINE KINASE 74 IU/L (26-192); HDL CHOLESTEROL 35 mg/dL (40-59)
[2019-01-21 06:49] LABS: CREATINE KINASE MB FRACTION 2.1 ng/mL (0.5-3.6)
[2019-01-21 06:52] LABS: INR 1.1; PROTHROMBIN TIME 10.9 sec (9.6-11.0)
[2019-01-21] MEDS: FUROSEMIDE 40MG/4ML VIAL IV SCH (09:43)
[2019-01-21] MEDS ORDERED: DEXTROSE 50% WATER 50ML SYRINGE IV PRN ×2 (11:15)
[2019-01-21] MEDS: BLOOD SUGAR DIAGNOSTIC STRIP TEST SCH ×3 (12:00→21:00)
[2019-01-21] MEDS: INSULIN LISPRO 100 UNITS/ML SUBCUT SCH ×3 (12:29→22:14)
[2019-01-21] MEDS: AMIODARONE HCL 200 MG TABLET PO SCH ×2 (13:33→21:55)
[2019-01-21] MEDS: CARVEDILOL 6.25 MG TABLET PO SCH ×2 (13:33→21:55)
[2019-01-21] MEDS: IPRATROPIUM/ALBUTEROL 0.5-3(2.5)MG/3ML NEB HHN PRN (20:39)
[2019-01-21] MEDS: ENOXAPARIN 40MG/0.4ML SYR SUBCUT SCH (22:07)
[2019-01-22] VITALS (11 sets, daily range): BP systolic 110–162; BP diastolic 60–93
[2019-01-22] MEDS ORDERED: DILTIAZEM HCL 5MG/ML 5ML VIAL IV PRN (00:13)
[2019-01-22] MEDS: IPRATROPIUM/ALBUTEROL 0.5-3(2.5)MG/3ML NEB HHN PRN ×2 (01:01→14:57)
[2019-01-22] MEDS ORDERED: DILTIAZEM HCL 60MG TABLET PO SCH (06:00)
[2019-01-22] MEDS: SODIUM CHLORIDE 0.9% INJ 3ML FLUSH IVF SCH ×3 (06:24→21:07)
[2019-01-22] MEDS: BLOOD SUGAR DIAGNOSTIC STRIP TEST SCH ×5 (07:41→21:07)
[2019-01-22 08:03] LABS: *AMPHETAMINES SCREEN URINE NEGATIVE (NEGATIVE); *BARBITURATES SCREEN URINE NEGATIVE (NEGATIVE); *BENZODIAZEPINES SCREEN URINE NEGATIVE (NEGATIVE); *COCAINE SCREEN URINE NEGATIVE (NEGATIVE)
[2019-01-22 08:04] LABS: CANNABINOID URINE SCREEN NEGATIVE (NEGATIVE); METHADONE URINE SCREEN NEGATIVE (NEGATIVE); OPIATES URINE SCREEN NEGATIVE (NEGATIVE); PHENCYCLIDINE URINE SCREEN NEGATIVE (NEGATIVE)
[2019-01-22] MEDS: AMIODARONE HCL 200 MG TABLET PO SCH ×2 (08:50→20:57)
[2019-01-22] MEDS: INSULIN LISPRO 100 UNITS/ML SUBCUT SCH ×4 (08:50→21:10)
[2019-01-22] MEDS: FUROSEMIDE 40MG/4ML VIAL IV SCH (08:50)
[2019-01-22] MEDS: CARVEDILOL 6.25 MG TABLET PO SCH (08:51)
[2019-01-22] MEDS ORDERED: DEXTROSE 50% WATER 50ML SYRINGE IV PRN (12:30)
[2019-01-22 13:42] LABS: BG BASE EXCESS 0.3 mmol/L (-2.0-2.0); BG CARBOXYHEMOGLOBIN 0.7 % (0.5-1.5); BG DEOXYHEMOGLOBIN 6.7 % (0.0-5.0); BG FRACTION INSPIRED OXYGEN 32; BG HCO3 ACT 24.8 mmol/L (22.0-26.0); BG METHEMOGLOBIN 0.2 % (0.0-1.5); BG OXYGEN SATURATION 93.2 % (92.0-98.5); BG OXYHEMOGLOBIN 92.4 % (94.0-97.0); BG PCO2 39.4 mmHg (35.0-45.0); BG PH 7.416 (7.350-7.450); BG SAMPLE SITE RIGHT BRACHIAL; BG TOTAL HEMOGLOBIN 11.8 g/dL (12.0-18.0); BG VENT MODE NASAL CANNULA
[2019-01-22] MEDS: DILTIAZEM HCL 30MG TABLET PO SCH ×2 (14:00→23:05)
[2019-01-22] MEDS: CARVEDILOL 12.5MG TABLET PO SCH (20:58)
[2019-01-22] MEDS: ENOXAPARIN 40MG/0.4ML SYR SUBCUT SCH (21:09)
[2019-01-23] VITALS (8 sets, daily range): BP systolic 140–156; BP diastolic 65–89
[2019-01-23] MEDS: IPRATROPIUM/ALBUTEROL 0.5-3(2.5)MG/3ML NEB HHN PRN ×3 (02:21→20:49)
[2019-01-23] MEDS: SODIUM CHLORIDE 0.9% INJ 3ML FLUSH IVF SCH ×3 (05:24→22:43)
[2019-01-23] MEDS: DILTIAZEM HCL 30MG TABLET PO SCH ×3 (05:27→23:01)
[2019-01-23] MEDS: BLOOD SUGAR DIAGNOSTIC STRIP TEST SCH ×4 (08:09→20:43)
[2019-01-23] MEDS: INSULIN LISPRO 100 UNITS/ML SUBCUT SCH ×4 (08:27→20:49)
[2019-01-23] MEDS: FUROSEMIDE 40MG/4ML VIAL IV SCH (09:54)
[2019-01-23] MEDS: CARVEDILOL 12.5MG TABLET PO SCH ×2 (09:55→20:38)
[2019-01-23] MEDS: AMIODARONE HCL 200 MG TABLET PO SCH ×2 (09:55→20:38)
[2019-01-23] MEDS: INSULIN GLARGINE UD 100 UNITS/ML SYR SUBCUT SCH (09:56)
[2019-01-23] MEDS: APIXABAN 5 MG TABLET PO SCH ×2 (14:23→20:38)
[2019-01-23 15:14] LABS: CLARITY URINE TURBID (CLEAR); KETONES URINE NEGATIVE (NEGATIVE); LEUKOCYTE ESTERASE URINE NEGATIVE (NEGATIVE); NITRITE URINE NEGATIVE (NEGATIVE); OCCULT BLOOD URINE NEGATIVE (NEGATIVE); PROTEIN URINE 1+ (NEGATIVE); SPECIFIC GRAVITY URINE 1.023 (1.005-1.030)
[2019-01-23 15:17] LABS: COLOR URINE YELLOW (YELLOW)
[2019-01-24] MEDS: DILTIAZEM HCL 30MG TABLET PO SCH ×3 (06:00→21:50)
[2019-01-24] MEDS: SODIUM CHLORIDE 0.9% INJ 3ML FLUSH IVF SCH ×3 (06:20→22:07)
[2019-01-24 08:00] VITALS: BP 148/66
[2019-01-24 08:01] LABS: BASOPHILS % 0.3 % (0.0-2.0); EOSINOPHILS % 1.1 % (0.0-5.0); HEMOGLOBIN. 11.3 g/dL (12.0-16.0); MEAN CORPUSCULAR HEMOGLOBIN 25.5 pg (28.0-32.0); MEAN CORPUSCULAR VOLUME 81.4 fL (81.0-99.0); MEAN PLATELET VOLUME 10.7 fl (7.4-10.4); MONOCYTES % 9.4 % (2.0-8.0); NEUTROPHILS % 65.2 % (40.0-76.0); PLATELET 179 x1000/uL (130-400); RED BLOOD CELL COUNT 4.42 mill/uL (4.2-5.4); RED CELL DISTRIBUTION WIDTH 15.5 % (11.6-14.6)
[2019-01-24] MEDS: INSULIN LISPRO 100 UNITS/ML SUBCUT SCH ×4 (08:16→22:06)
[2019-01-24] MEDS: AMIODARONE HCL 200 MG TABLET PO SCH ×2 (08:17→21:57)
[2019-01-24] MEDS: APIXABAN 5 MG TABLET PO SCH ×2 (08:17→21:49)
[2019-01-24] MEDS: CARVEDILOL 12.5MG TABLET PO SCH ×2 (08:17→21:49)
[2019-01-24] MEDS: BLOOD SUGAR DIAGNOSTIC STRIP TEST SCH ×4 (08:17→21:00)
[2019-01-24] MEDS: FUROSEMIDE 40MG/4ML VIAL IV SCH (08:17)
[2019-01-24] MEDS: IPRATROPIUM/ALBUTEROL 0.5-3(2.5)MG/3ML NEB HHN PRN ×4 (09:14→21:12)
[2019-01-24] MEDS: INSULIN GLARGINE UD 100 UNITS/ML SYR SUBCUT SCH (10:36)
[2019-01-24 12:00] VITALS: BP 123/70
[2019-01-24] MEDS ORDERED: FURO-151 MT (16:46)
[2019-01-24] MEDS ORDERED: LANTUSUD SUBCUT (16:46)
[2019-01-24] MEDS ORDERED: DILT30TA38 PO (16:46)
[2019-01-24] MEDS ORDERED: APIX5TAB PO ×3 (16:46→16:54)
[2019-01-24] MEDS ORDERED: COR12 PO (16:46)
[2019-01-24] MEDS ORDERED: AMI2 PO (16:46)
[2019-01-24] MEDS ORDERED: LISI2.5T47 MT (16:48)
[2019-01-24 17:08] VITALS: BP 129/74
[2019-01-24 18:00] VITALS: BP 129/74
[2019-01-24 20:00] VITALS: BP 153/65
[2019-01-25] MEDS: IPRATROPIUM/ALBUTEROL 0.5-3(2.5)MG/3ML NEB HHN PRN ×3 (00:09→20:44)
[2019-01-25] MEDS: SODIUM CHLORIDE 0.9% INJ 3ML FLUSH IVF SCH ×3 (05:30→22:00)
[2019-01-25] MEDS: DILTIAZEM HCL 30MG TABLET PO SCH (05:30)
[2019-01-25 08:00] VITALS: BP 171/85
[2019-01-25] MEDS: BLOOD SUGAR DIAGNOSTIC STRIP TEST SCH ×4 (08:25→21:00)
[2019-01-25] MEDS: AMIODARONE HCL 200 MG TABLET PO SCH (08:36)
[2019-01-25] MEDS: APIXABAN 5 MG TABLET PO SCH ×2 (08:36→21:36)
[2019-01-25] MEDS: FUROSEMIDE 40MG/4ML VIAL IV SCH (08:36)
[2019-01-25] MEDS: INSULIN LISPRO 100 UNITS/ML SUBCUT SCH ×4 (08:38→22:18)
[2019-01-25] MEDS: CARVEDILOL 12.5MG TABLET PO SCH ×2 (08:59→21:36)
[2019-01-25 09:46] VITALS: BP 165/65
[2019-01-25] MEDS: INSULIN GLARGINE UD 100 UNITS/ML SYR SUBCUT SCH (10:49)
[2019-01-25 12:00] VITALS: BP 166/72
[2019-01-25] MEDS: DILTIAZEM HCL 120MG CAPSULE CD 24HR PO SCH (12:02)
[2019-01-25] MEDS: SPIRONOLACTONE 25MG TABLET PO SCH (13:27)
[2019-01-25 13:30] VITALS: BP 160/78
[2019-01-25 17:30] VITALS: BP 148/70
[2019-01-25 20:00] VITALS: BP 153/85
[2019-01-26] MEDS: SODIUM CHLORIDE 0.9% INJ 3ML FLUSH IVF SCH ×3 (06:00→20:15)
[2019-01-26 08:00] VITALS: BP 163/78
[2019-01-26] MEDS: BLOOD SUGAR DIAGNOSTIC STRIP TEST SCH ×4 (08:28→20:15)
[2019-01-26] MEDS: FUROSEMIDE 40MG/4ML VIAL IV SCH (08:55)
[2019-01-26] MEDS: DILTIAZEM HCL 120MG CAPSULE CD 24HR PO SCH ×2 (08:55→20:15)
[2019-01-26] MEDS: CARVEDILOL 12.5MG TABLET PO SCH ×2 (08:57→20:14)
[2019-01-26] MEDS: SPIRONOLACTONE 25MG TABLET PO SCH (08:57)
[2019-01-26] MEDS: APIXABAN 5 MG TABLET PO SCH (08:57)
[2019-01-26] MEDS: INSULIN LISPRO 100 UNITS/ML SUBCUT SCH ×4 (08:59→20:16)
[2019-01-26] MEDS ORDERED: AMIODARONE HCL 200 MG TABLET PO SCH (09:00)
[2019-01-26] MEDS: INSULIN GLARGINE UD 100 UNITS/ML SYR SUBCUT SCH (09:54)
[2019-01-26 10:00] VITALS: BP 162/77
[2019-01-26 12:00] VITALS: BP 122/70
[2019-01-26 13:14] LABS: BG BASE EXCESS 3.1 mmol/L (-2.0-2.0); BG CARBOXYHEMOGLOBIN 0.4 % (0.5-1.5); BG DEOXYHEMOGLOBIN 7.6 % (0.0-5.0); BG HCO3 ACT 27.6 mmol/L (22.0-26.0); BG METHEMOGLOBIN 0.2 % (0.0-1.5); BG OXYGEN SATURATION 92.4 % (92.0-98.5); BG OXYHEMOGLOBIN 91.8 % (94.0-97.0); BG PCO2 41.6 mmHg (35.0-45.0); BG PH 7.439 (7.350-7.450); BG PO2 64.9 mmHg (75.0-100.0); BG SAMPLE SITE LEFT BRACHIAL; BG TOTAL HEMOGLOBIN 11.7 g/dL (12.0-18.0); BG VENT MODE ROOM AIR
[2019-01-26] MEDS ORDERED: LIDOCAINE HCL/PF 1% 2ML VIAL ONE (13:32)
[2019-01-26 18:00] VITALS: BP 128/57
[2019-01-26] MEDS ORDERED: FUROSEMIDE 40MG/4ML VIAL IVP NR (18:15)
[2019-01-27] MEDS: SODIUM CHLORIDE 0.9% INJ 3ML FLUSH IVF SCH (05:16)
[2019-01-27] MEDS: BLOOD SUGAR DIAGNOSTIC STRIP TEST SCH (07:30)
[2019-01-27 08:00] VITALS: BP 142/67
[2019-01-27] MEDS ORDERED: AMIODARONE HCL 200 MG TABLET PO SCH (09:00)
[2019-01-27] MEDS: INSULIN LISPRO 100 UNITS/ML SUBCUT SCH (09:04)
[2019-01-27] MEDS: FUROSEMIDE 40MG/4ML VIAL IV SCH (09:05)
[2019-01-27] MEDS: CARVEDILOL 12.5MG TABLET PO SCH (09:06)
[2019-01-27] MEDS: DILTIAZEM HCL 120MG CAPSULE CD 24HR PO SCH (09:06)
[2019-01-27] MEDS: SPIRONOLACTONE 25MG TABLET PO SCH (09:07)
[2019-01-27] MEDS: INSULIN GLARGINE UD 100 UNITS/ML SYR SUBCUT SCH (09:10)
[2019-01-27 09:36] VITALS: BP 142/67
[2019-01-31] MEDS ORDERED: APIXABAN 5 MG TABLET PO SCH (09:00)
== END 2019-01-27 12:05 | disposition still patient (30) | DRG 291 ==
LOC: ER 15:32 → 5EST 17:30 → EDBEDREQ 17:36 → EDBEDREQTM 17:36 → EDBEDREQSVC 17:36 → ENRESERV 19:49
PROVIDERS: ADMIT Family Medicine; ATTEND Family Medicine
PROC: 5A09357 Assistance with Respiratory Ventilation, Less than 24 Consecutive Hours, Continuous Positive Airway Pressure (ICD-10-PCS; principal; 2019-01-22)
PROC: 5A09357 Assistance with Respiratory Ventilation, Less than 24 Consecutive Hours, Continuous Positive Airway Pressure (ICD-10-PCS; 2019-01-23)
PROC: 5A09357 Assistance with Respiratory Ventilation, Less than 24 Consecutive Hours, Continuous Positive Airway Pressure (ICD-10-PCS; 2019-01-24)
DX: I11.0 Hypertensive heart disease with heart failure (principal); J96.00 Acute respiratory failure, unspecified whether with hypoxia or hypercapnia; I50.31 Acute diastolic (congestive) heart failure; J44.1 Chronic obstructive pulmonary disease with (acute) exacerbation; I47.1 Supraventricular tachycardia; I82.629 Acute embolism and thrombosis of deep veins of unspecified upper extremity; I48.91 Unspecified atrial fibrillation; I34.0 Nonrheumatic mitral (valve) insufficiency; E78.5 Hyperlipidemia, unspecified; E11.9 Type 2 diabetes mellitus without complications; I27.20 Pulmonary hypertension, unspecified; I42.9 Cardiomyopathy, unspecified; Z87.891 Personal history of nicotine dependence; Z88.9 Allergy status to unspecified drugs, medicaments and biological substances; Z88.8 Allergy status to other drugs, medicaments and biological substances; Z86.73 Personal history of transient ischemic attack (TIA), and cerebral infarction without residual deficits; Z88.0 Allergy status to penicillin; Z91.19 Patient's noncompliance with other medical treatment and regimen; Z79.899 Other long term (current) drug therapy
CPT/HCPCS: 36415; 36600; 71045; 80048; 80061; 80305; 81003; 82375; 82550; 82553; 82805; 82962; 83735; 83880; 84484; 93005; 93306; 93971; 94618; 94640; 94660; 96374; 97110; 97161; 97535; 99291; J1650; J1815; J1940; J3490; J7060; J7620